=== PATIENT | female | born 1985 | race African-American/Black ===

== ENCOUNTER → 2019-02-21 | Outpatient (CLI) | payer OTHER ==
[2019-02-21 15:46] LABS: ANION GAP 8 (5-19); BLOOD UREA NITROGEN 12 mg/dL (7-20); CARBON DIOXIDE 29 mmol/L (22-30); CHLORIDE 102 mmol/L (98-107); GLUCOSE 81 mg/dL (75-110); POTASSIUM 3.3 mmol/L (3.6-5.0); SODIUM 138.9 mmol/L (137-145)
== END ==
LOC: OD 14:49
PROVIDERS: ATTEND Physician Assistant
DX: E87.6 Hypokalemia (principal)
CPT/HCPCS: 36415; 80048

== ENCOUNTER → 2019-03-10 | Outpatient (CLI) | payer OTHER | LOC: OD 14:19 | PROVIDERS: ATTEND Physician Assistant | DX: D50.9 Iron deficiency anemia, unspecified (principal) | CPT/HCPCS: 36415; 82728 ==

== ENCOUNTER → 2019-03-13 | Outpatient (CLI) | payer MEDICAID, OTHER ==
--- NOTE | 2019-03-13 12:21 | RADIOLOGY REPORT (SQ) ---
EXAM DESCRIPTION: U/S ABDOMEN LIMITED W/O DOP COMPLETED DATE/TIME: 03/13/2019 9:58 am REASON FOR STUDY: RIGHT UPPER QUAD PAIN R10.11 RIGHT UPPER QUADRANT PAIN COMPARISON: None. TECHNIQUE: Dynamic and static grayscale images acquired of the abdomen and recorded on PACS. Additio nal selected color Doppler and spectral images recorded. LIMITATIONS: None. FINDINGS: PANCREAS: No masses. Visualized pancreatic duct normal caliber. LIVER: No masses. Echotexture normal. LIVER VASCULATURE: Normal directional flow of the main portal vein and hepatic veins. GALLBLADDER: No stones. Normal wall thickness. No pericholecystic fluid. ULTRASOUND-DETECTED MEREDITH'S SIGN: Negative. INTRAHEPATIC DUCTS AND COMMON DUCT: CBD and intrahepatic ducts normal caliber. No filling defects. INFERIOR VENA CAVA: Normal flow. AORTA: No aneurysm. RIGHT KIDNEY: Normal size. Normal echogenicity. No solid or suspicious masses. No hydronephrosis. No calcifications. PERITONEAL AND RIGHT PLEURAL SPACE: No ascites or effusions. OTHER: No other significant findings. IMPRESSION: NORMAL RIGHT UPPER QUADRANT ULTRASOUND. TECHNICAL DOCUMENTATION: JOB ID: [id number] [employer]- All Rights Reserved Reading location - IP/workstation name: [email or web address]
== END ==
LOC: RAD 09:12
PROVIDERS: ATTEND Physician Assistant
DX: R10.11 Right upper quadrant pain (principal)
CPT/HCPCS: 76705

== ENCOUNTER 2019-04-06 15:23 | Emergency (ER) | payer OTHER, MEDICAID ==
--- NOTE | 2019-04-06 16:28 | ER Document Report ---
HPI - HPI Patient complains to provider of: Lower extremity swelling Time Seen by Provider: 04/06/19 16:12 Onset: Other - 5 days Onset/Duration: Persistent Quality of pain: Achy Pain Level: 3 Context: Patient states she recently started working full-time. Patient states that since working she has had bilateral lower extremity swelling from the knee distally. Patient does states she has a history of osteoarthritis and degenerative joint disease and has been told in the past that she will need knee replacement surgery. Patient complains of bilateral knee joint pain. Patient also reports denies any recent travel, bedrest for surgical procedure. Patient denies any chest pain dyspnea or history of PE or DVT. Associated Symptoms: Leg swelling. denies: Chest pain, Nonproductive cough, Productive cough, Fever, Headache, Shortness of breath Exacerbated by: Standing Relieved by: Denies Similar symptoms previously: Yes Recently seen / treated by doctor: No - ROS ROS below otherwise negative: Yes Systems Reviewed and Negative: Yes All other systems reviewed and negative - CONSTITUTIONAL Constitutional: DENIES: Fever - NEURO Neurology: DENIES: Weakness - CARDIOVASCULAR Cardiovascular: DENIES: Chest pain - RESPIRATORY Respiratory: DENIES: Trouble Breathing, Coughing - GASTROINTESTINAL Gastrointestinal: DENIES: Nausea, Patient vomiting - REPRODUCTIVE Reproductive: DENIES: : - MUSCULOSKELETAL Musculoskeletal: REPORTS: Extremity pain, Swelling - DERM Skin Color: Normal Skin Problems: None Past Medical History - General Information source: Patient - Social History Smoking Status: Current Every Day Smoker Smoking Education Provided: Yes Frequency of alcohol use: None Drug Abuse: None Occupation: food vendor Lives with: Family Family History: Reviewed & Not Pertinent - Past Medical History Cardiac Medical History: Reports: Hx Hypertension Musculoskeletal Medical History: Reports Hx Arthritis Past Surgical History: Reports: Hx Bowel Surgery - Gastric sleeve - Immunizations Hx Diphtheria, Pertussis, Tetanus Vaccination: No Vertical Provider Document - CONSTITUTIONAL Agree With Documented VS: Yes Exam Limitations: No Limitations General Appearance: WD/WN, No Apparent Distress - INFECTION CONTROL TRAVEL OUTSIDE OF THE [place] IN LAST 30 DAYS: No - HEENT HEENT: Atraumatic, Normocephalic - NECK Neck: Normal Inspection - RESPIRATORY Respiratory: Breath Sounds Normal, No Respiratory Distress - CARDIOVASCULAR Cardiovascular: Regular Rate, Regular Rhythm Pulses: Normal: Dorsalis pedis - MUSCULOSKELETAL/EXTREMETIES Musculoskeletal/Extremeties: MAEW, FROM, Tender - Tenderness to bilateral knees, Edema - 2+ edema to bilateral lower extremities from knees distally, bilateral knee joint effusion, right worse than left, normal skin color and temperature overlying joints. - NEURO Level of Consciousness: Awake, Alert, Appropriate Motor/Sensory: No Motor Deficit - DERM Integumentary: Warm, Dry, No Rash Course - Re-evaluation Re-evalutation: 04/06/19 17:37 With bilateral lower extremity pain and swelling for the past 5 days since having an increase in activity. Patient reports that she has had a history of left ankle swelling off and on for the past 4 months and has had a history of bilateral knee swelling and was told previously that she may need a joint replacement. Patient without any recent trauma. No dyspnea, no chest pain, no concern for DVT at this time. No elevation in BNP, no concern for congestive heart failure at this time. Patient with incidental hypokalemia, and mildly elevated liver function test. Patient states that she has had low potassium in the past. Patient encouraged to follow-up with her primary doctor for recheck. Patient also encouraged to use compression stockings to help with her peripheral edema. - Vital Signs Vital signs: Temp Pulse Resp BP Pulse Ox 98.2 F 84 16 127/92 H 97 04/06/19 15:37 04/06/19 15:37 04/06/19 15:37 04/06/19 15:37 04/06/19 15:37 - Laboratory Result Diagrams: 04/06/19 16:40 Laboratory results interpreted by me: 04/06/19 17:37 Labs- Entire Visit 04/06/19 04/06/19 04/06/19 16:40 16:40 16:40 Sodium 139.3 Potassium 3.3 L Chloride 110 H Carbon Dioxide 23 Anion Gap 6 BUN 9 Creatinine 0.55 Est GFR ( Amer) > 60 Est GFR (Non-Af Amer) > 60 Glucose 64 L Calcium 9.0 Magnesium 2.1 Total Bilirubin 0.7 Direct Bilirubin 0.2 Neonat Total Bilirubin Not Reportable Neonat Direct Bilirubin Not Reportable Neonat Indirect Bili Not Reportable AST 156 H ALT 63 H Alkaline Phosphatase 82 NT-Pro-B Natriuret Pep 55 Total Protein 6.2 L Albumin 3.5 Discharge - Discharge Clinical Impression: Dependent edema, Hypokalemia, Elevated liver function tests Condition: Stable Disposition: HOME, SELF-CARE Instructions: Dependent Edema ([facility]), Hypokalemia ([facility]), Liver Function Abnormality ([facility]) Additional Instructions: Return immediately for any new or worsening symptoms Followup with your primary care provider, call tomorrow to make a followup appointment Your potassium level was decreased today and your liver function test was mildly elevated. Your primary doctor can recheck these lab tests for you Wear compression stockings when you are at work to help with peripheral edema. Forms: Smoking Cessation Education, Return to Work Referrals: CHENG LEWIS MD [Primary Care Provider] - Follow up as needed ADI HEBERT PA [PHYSICIAN RETAIL SALES TEAMMATE] - Follow up in 3-5 days
[2019-04-06 17:14] LABS: ALANINE AMINOTRANSFERASE 63 U/L (9-52); ALBUMIN 3.5 g/dL (3.5-5.0); ALKALINE PHOSPHATASE 82 U/L (38-126); ANION GAP 6 (5-19); ASPARTATE AMINO TRANSFERASE 156 U/L (14-36); BILIRUBIN,DIRECT 0.2 mg/dL (0.0-0.4); BILIRUBIN,TOTAL 0.7 mg/dL (0.2-1.3); BLOOD UREA NITROGEN 9 mg/dL (7-20); CARBON DIOXIDE 23 mmol/L (22-30); CHLORIDE 110 mmol/L (98-107); POTASSIUM 3.3 mmol/L (3.6-5.0); SODIUM 139.3 mmol/L (137-145); TOTAL PROTEIN 6.2 g/dL (6.3-8.2)
[2019-04-06 17:17] LABS: GLUCOSE 64 mg/dL (75-110)
[2019-04-06] MEDS ORDERED: POTASSIUM CHLORIDE 10 MEQ CAPSULE.ER PO ONE (17:18)
[2019-04-06 17:58] VITALS: BP 140/95
== END 2019-04-06 18:17 | disposition home or self-care (01) ==
LOC: ER 15:23
DX: R60.0 Localized edema (principal); E87.6 Hypokalemia; R79.89 Other specified abnormal findings of blood chemistry; F17.200 Nicotine dependence, unspecified, uncomplicated; I10 Essential (primary) hypertension
CPT/HCPCS: 36415; 80053; 83735; 83880; 99283

== ENCOUNTER 2019-06-21 20:42 | Emergency (ER) | payer OTHER, MEDICAID ==
[2019-06-21 20:48] VITALS: BP 121/79
[2019-06-21] MEDS ORDERED: ACETAMINOPHEN 325 MG TABLET PO ONE (21:16)
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
[2019-06-21 21:47] LABS: APPEARANCE,URINE SLIGHTLY-CLOUDY; BILIRUBIN,URINE NEGATIVE (NEGATIVE); COLOR,URINE YELLOW; GLUCOSE, URINE NEGATIVE (NEGATIVE); KETONES,URINE NEGATIVE (NEGATIVE); LEUKOCYTE ESTERASE,URINE LARGE (NEGATIVE); NITRITE,URINE NEGATIVE (NEGATIVE); PROTEIN,URINE NEGATIVE (NEGATIVE); URINE SPECIFIC GRAVITY 1.011; UROBILINOGEN,URINE NEGATIVE mg/dL (<2.0)
[2019-06-21 23:10] LABS: ABSOLUTE BASOPHILS # (AUTO) 0.1 10^3/uL (0.0-0.2); ABSOLUTE LYMPHOCYTES (AUTO) 2.4 10^3/uL (0.5-4.7); ABSOLUTE MONOCYTES (AUTO) 0.8 10^3/uL (0.1-1.4); ABSOLUTE NEUT (AUTO) 4.5 10^3/uL (1.7-8.2); BASOPHILS % (AUTO) 0.9 % (0-2); EOSINOPHILS % (AUTO) 0.6 % (0-6); HEMATOCRIT 25.9 % (36.0-47.0); HEMOGLOBIN 8.2 g/dL (12.0-15.5); LYMPHOCYTES % (AUTO) 30.5 % (13-45); MEAN CORPUSCULAR HEMOGLOBIN 26.7 pg (27.0-33.4); MEAN CORPUSCULAR HGB CONC 31.4 g/dL (32.0-36.0); MEAN CORPUSCULAR VOLUME 85 fl (80-97); MONOCYTES % (AUTO) 9.7 % (3-13); PLATELET COUNT 372 10^3/uL (150-450); RED BLOOD COUNT 3.05 10^6/uL (3.72-5.28); RED CELL DISTRIBUTION WIDTH 19.9 % (11.5-14.0); SEGMENTED NEUTROPHILS % (AUTO) 58.3 % (42-78); TOTAL CELLS COUNTED % (AUTO) 100 %; WHITE BLOOD COUNT 7.8 10^3/uL (4.0-10.5)
[2019-06-21 23:27] LABS: ALBUMIN 3.3 g/dL (3.5-5.0); ALKALINE PHOSPHATASE 105 U/L (38-126); ANION GAP 7 (5-19); ASPARTATE AMINO TRANSFERASE 67 U/L (14-36); BILIRUBIN,DIRECT 0.4 mg/dL (0.0-0.4); BILIRUBIN,TOTAL 0.7 mg/dL (0.2-1.3); BLOOD UREA NITROGEN 10 mg/dL (7-20); CALCIUM 8.9 mg/dL (8.4-10.2); CARBON DIOXIDE 25 mmol/L (22-30); CHLORIDE 107 mmol/L (98-107); POTASSIUM 3.7 mmol/L (3.6-5.0); TOTAL PROTEIN 6.2 g/dL (6.3-8.2)
[2019-06-21 23:33] LABS: GLUCOSE 66 mg/dL (75-110)
== END 2019-06-21 23:56 | disposition left against medical advice (07) ==
LOC: ER 20:42
DX: R60.9 Edema, unspecified (principal); Z53.20 Procedure and treatment not carried out because of patient's decision for unspecified reasons
CPT/HCPCS: 36415; 80053; 81001; 81025; 85025

== ENCOUNTER 2019-06-25 | Emergency (ER) | payer MEDICAID, OTHER ==
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
[2019-06-25 03:02] LABS: ABSOLUTE BASOPHILS # (AUTO) 0.1 10^3/uL (0.0-0.2); ABSOLUTE EOSINOPHILS # (AUTO) 0.1 10^3/uL (0.0-0.6); ABSOLUTE LYMPHOCYTES (AUTO) 2.3 10^3/uL (0.5-4.7); ABSOLUTE MONOCYTES (AUTO) 0.7 10^3/uL (0.1-1.4); ABSOLUTE NEUT (AUTO) 3.3 10^3/uL (1.7-8.2); BASOPHILS % (AUTO) 1.6 % (0-2); EOSINOPHILS % (AUTO) 1.4 % (0-6); HEMATOCRIT 27.2 % (36.0-47.0); HEMOGLOBIN 8.5 g/dL (12.0-15.5); LYMPHOCYTES % (AUTO) 34.8 % (13-45); MEAN CORPUSCULAR HEMOGLOBIN 26.5 pg (27.0-33.4); MEAN CORPUSCULAR HGB CONC 31.1 g/dL (32.0-36.0); MEAN CORPUSCULAR VOLUME 85 fl (80-97); MONOCYTES % (AUTO) 11.3 % (3-13); PLATELET COUNT 386 10^3/uL (150-450); RED BLOOD COUNT 3.19 10^6/uL (3.72-5.28); RED CELL DISTRIBUTION WIDTH 19.5 % (11.5-14.0); SEGMENTED NEUTROPHILS % (AUTO) 50.9 % (42-78); TOTAL CELLS COUNTED % (AUTO) 100 %; WHITE BLOOD COUNT 6.5 10^3/uL (4.0-10.5)
[2019-06-25 03:07] LABS: APPEARANCE,URINE CLEAR; BILIRUBIN,URINE NEGATIVE (NEGATIVE); COLOR,URINE STRAW; GLUCOSE, URINE NEGATIVE (NEGATIVE); KETONES,URINE NEGATIVE (NEGATIVE); LEUKOCYTE ESTERASE,URINE NEGATIVE (NEGATIVE); NITRITE,URINE NEGATIVE (NEGATIVE); PROTEIN,URINE NEGATIVE (NEGATIVE); URINE SPECIFIC GRAVITY 1.003; UROBILINOGEN,URINE NEGATIVE mg/dL (<2.0)
[2019-06-25 03:08] LABS: ALBUMIN 3.4 g/dL (3.5-5.0); ALKALINE PHOSPHATASE 89 U/L (38-126); ANION GAP 8 (5-19); ASPARTATE AMINO TRANSFERASE 76 U/L (14-36); BILIRUBIN,DIRECT 0.5 mg/dL (0.0-0.4); BILIRUBIN,TOTAL 0.8 mg/dL (0.2-1.3); BLOOD UREA NITROGEN 14 mg/dL (7-20); CALCIUM 8.7 mg/dL (8.4-10.2); CARBON DIOXIDE 23 mmol/L (22-30); CHLORIDE 107 mmol/L (98-107); GLUCOSE 78 mg/dL (75-110); TOTAL PROTEIN 6.3 g/dL (6.3-8.2)
[2019-06-25] MEDS ORDERED: FUROSEMIDE INJ/PF 40 MG/4 ML SDV IV ONE (03:52)
[2019-06-25] MEDS ORDERED: HYDROCODONE/ACETAMINOPHEN 5-325 MG (6 TAB/ER DISP) PO PRN (04:22)
[2019-06-25 05:10] VITALS: BP 120/60
== END 2019-06-25 05:08 | disposition home or self-care (01) ==
LOC: ER
DX: M79.89 Other specified soft tissue disorders (principal); M79.604 Pain in right leg; M79.605 Pain in left leg; Z79.899 Other long term (current) drug therapy; F17.200 Nicotine dependence, unspecified, uncomplicated; I10 Essential (primary) hypertension; E66.9 Obesity, unspecified
CPT/HCPCS: 99283; 96374; 36415; 84703; 85025; 80053; 81001; J1940

== ENCOUNTER 2019-08-08 14:12 | Emergency (ER) | payer MEDICAID, OTHER ==
[2019-08-08] MEDS ORDERED: ONDANSETRON 4 MG TAB.RAPDIS PO ONE (14:26)
--- NOTE | 2019-08-08 14:26 | ER Document Report ---
ED Medical Screen (RME) - General Chief Complaint: Nausea Stated Complaint: NAUSEA Time Seen by Provider: 08/08/19 14:23 Primary Care Provider: CHENG LEWIS MD [Primary Care Provider] - Follow up as needed Mode of Arrival: Ambulatory Information source: Patient Notes: 34-year-old female presents to ED for complaint of nausea and vomiting x2 days. No abdominal pain. She states she is dizzy. She states she does smoke a half a pack a day drinks weekly no drugs. Last menstrual cycle was August 07 till now. States a history of high blood pressure, anemia, degenerative joint disease.. I have greeted and performed a rapid initial assessment of this patient. A comprehensive ED assessment and evaluation of the patient, analysis of test results and completion of medical decision making process will be conducted by an additional ED providers. TRAVEL OUTSIDE OF THE [place] IN LAST 30 DAYS: No - Related Data Allergies/Adverse Reactions: No Known Allergies Allergy (Verified 04/06/19 15:25) Past Medical History - Social History Chew tobacco use (# tins/day): No Frequency of alcohol use: Social Drug Abuse: None - Past Medical History Cardiac Medical History: Reports: Hx Hypertension Renal/ Medical History: Denies: Hx Peritoneal Dialysis Musculoskeltal Medical History: Reports Hx Arthritis Past Surgical History: Reports: Hx Bowel Surgery - Gastric sleeve - Immunizations Hx Diphtheria, Pertussis, Tetanus Vaccination: Yes Doctor's Discharge - Discharge Referrals: CHENG LEWIS MD [Primary Care Provider] - Follow up as needed
[2019-08-08 15:17] LABS: HEMATOCRIT 32.2 % (36.0-47.0); HEMOGLOBIN 10.2 g/dL (12.0-15.5); MEAN CORPUSCULAR HEMOGLOBIN 23.6 pg (27.0-33.4); MEAN CORPUSCULAR HGB CONC 31.8 g/dL (32.0-36.0); MEAN CORPUSCULAR VOLUME 74 fl (80-97); PLATELET COUNT 221 10^3/uL (150-450); RED BLOOD COUNT 4.33 10^6/uL (3.72-5.28); WHITE BLOOD COUNT 3.5 10^3/uL (4.0-10.5)
[2019-08-08 15:38] LABS: ALBUMIN 3.2 g/dL (3.5-5.0); ALKALINE PHOSPHATASE 138 U/L (38-126); ANION GAP 7 (5-19); ASPARTATE AMINO TRANSFERASE 269 U/L (14-36); BILIRUBIN,DIRECT 1.2 mg/dL (0.0-0.4); BILIRUBIN,TOTAL 2.6 mg/dL (0.2-1.3); BLOOD UREA NITROGEN 11 mg/dL (7-20); CALCIUM 8.6 mg/dL (8.4-10.2); CARBON DIOXIDE 23 mmol/L (22-30); CHLORIDE 109 mmol/L (98-107); GLUCOSE 92 mg/dL (75-110); POTASSIUM 3.9 mmol/L (3.6-5.0); TOTAL PROTEIN 6.4 g/dL (6.3-8.2)
[2019-08-08 15:47] LABS: ABSOLUTE LYMPHOCYTES# (MANUAL) 1.3 10^3/uL (0.5-4.7); ABSOLUTE MONOCYTES # (MANUAL) 0.1 10^3/uL (0.1-1.4); BASOPHILS % (MANUAL) 2 % (0-2); EOSINOPHILS % (MANUAL) 0 % (0-6); LYMPHOCYTES % (MANUAL) 36 % (13-45); MONOCYTES % (MANUAL) 3 % (3-13); SEGMENTED NEUTROPHILS % (MAN) 58 % (42-78); TOTAL CELLS COUNTED 100
[2019-08-08 15:48] LABS: ANISOCYTOSIS 3+; HYPOCHROMASIA 2+; PLATELET COMMENT ADEQUATE; TARGET CELLS 3+; TEAR DROP CELLS 1+
[2019-08-08 16:53] LABS: APPEARANCE,URINE SLIGHTLY-CLOUDY; BILIRUBIN,URINE NEGATIVE (NEGATIVE); COLOR,URINE AMBER; GLUCOSE, URINE NEGATIVE (NEGATIVE); KETONES,URINE NEGATIVE (NEGATIVE); PROTEIN,URINE NEGATIVE (NEGATIVE); URINE SPECIFIC GRAVITY 1.028
[2019-08-08] MEDS ORDERED: NORMAL SALINE 1000 ML 1,000 ML IV ONE (17:12)
[2019-08-08] MEDS ORDERED: PROMETHAZINE HCL 25 MG TABLET PO ONE (17:14)
--- NOTE | 2019-08-08 17:16 | ER Document Report ---
ED GI/ - General Mode of Arrival: Ambulatory Information source: Patient TRAVEL OUTSIDE OF THE [place] IN LAST 30 DAYS: No - HPI Patient complains to provider of: Vomiting. No: Abdominal pain Onset: Other - 2 days Timing/Duration: Persistent Quality of pain: No pain Pain Level: Denies Vaginal bleeding (Compared to normal period): None Associated symptoms: Loss of appetite, Nausea, Vomiting. denies: Chest pain, Diarrhea, Fever, Urinary hesitancy, Urinary frequency, Urinary retention Exacerbated by: Denies Relieved by: Denies Similar symptoms previously: No Recently seen / treated by doctor: No <MAGDA FORTUNE - Last Filed: 08/08/19 20:20> <YOLIS BEARDEN - Last Filed: 08/09/19 07:40> - General Chief Complaint: nausea Stated Complaint: NAUSEA Time Seen by Provider: 08/08/19 14:23 Primary Care Provider: [facility] [Provider Group] - 08/11/19 Notes: Patient presents with a 2-day history of nausea and vomiting. Patient also reports decreased appetite and dizziness. Patient denies any abdominal pain. Patient denies any fever or diarrhea. (MAGDA FORTUNE) - Related Data Allergies/Adverse Reactions: No Known Allergies Allergy (Verified 08/08/19 14:26) Past Medical History - General Information source: Patient - Social History Smoking Status: Current Every Day Smoker Chew tobacco use (# tins/day): No Frequency of alcohol use: Social Drug Abuse: None Occupation: Foodservice Family History: Reviewed & Not Pertinent Patient has suicidal ideation: No Patient has homicidal ideation: No - Past Medical History Cardiac Medical History: Reports: Hx Hypertension Renal/ Medical History: Denies: Hx Peritoneal Dialysis Musculoskeletal Medical History: Reports Hx Arthritis Past Surgical History: Reports: Hx Bowel Surgery - Gastric sleeve - Immunizations Hx Diphtheria, Pertussis, Tetanus Vaccination: Yes <MAGDA FORTUNE - Last Filed: 08/08/19 20:20> Review of Systems - Review of Systems Constitutional: No symptoms reported. denies: Fever, Recent illness EENT: No symptoms reported Cardiovascular: No symptoms reported. denies: Chest pain Gastrointestinal: Nausea, Vomiting, Poor appetite. denies: Abdominal pain Genitourinary: No symptoms reported Female Genitourinary: No symptoms reported Musculoskeletal: No symptoms reported Skin: No symptoms reported Hematologic/Lymphatic: No symptoms reported Neurological/Psychological: No symptoms reported <DEVIKAHILLNALINI - Last Filed: 08/08/19 20:20> Physical Exam - General General appearance: Appears well, Alert In distress: None - HEENT Head: Normocephalic, Atraumatic Eyes: Normal Conjunctiva: Normal Nasal: Normal Mouth/Lips: Normal Mucous membranes: Normal Neck: Normal, Supple. No: Lymphadenopathy - Respiratory Respiratory status: No respiratory distress Chest status: Nontender Breath sounds: Normal. No: Rales, Rhonchi, Stridor, Wheezing Chest palpation: Normal - Cardiovascular Rhythm: Regular Heart sounds: S1 appreciated, S2 appreciated Murmur: No - Abdominal Inspection: Normal Distension: No distension Bowel sounds: Normal Tenderness: Nontender Organomegaly: No organomegaly - Back Back: Normal, Nontender. No: CVA tenderness - Extremities General upper extremity: Normal inspection, Normal strength General lower extremity: Normal inspection, Normal strength - Neurological Neuro grossly intact: Yes Cognition: Normal Jacques Coma Scale Eye Opening: Spontaneous [place] Coma Scale Verbal: Oriented Jacques Coma Scale Motor: Obeys Commands [place] Coma Scale Total: 15 - Psychological Associated symptoms: Normal affect, Normal mood - Skin Skin Temperature: Warm Skin Moisture: Dry Skin Color: Normal <MAGDA FORTUNE - Last Filed: 08/08/19 20:20> - Vital signs Vitals: Temp Pulse Resp BP Pulse Ox 98.2 F 68 17 134/94 H 96 08/08/19 14:21 08/08/19 14:21 08/08/19 14:21 08/08/19 14:21 08/08/19 14:21 Course - Laboratory Result Diagrams: 08/08/19 14:42 08/08/19 14:42 <MAGDA FORTUNE - Last Filed: 08/08/19 20:20> - Laboratory Result Diagrams: 08/08/19 14:42 08/08/19 14:42 <YOLIS BEARDEN - Last Filed: 08/09/19 07:40> - Re-evaluation Re-evalutation: 08/08/19 17:[address] Vaca regarding patient presentation, discussed laboratory results, recommends adding on ultrasound at this time. 08/08/19 20:20 Report and handoff given to MARIELA Juares (MAGDA FORTUNE) Unremarkable. Chemistry showing mildly elevated bilirubin and AST area lipase unremarkable. Ultrasound showing possible gallbladder wall thickening, possible adenomyosis versus gas in the gallbladder, possible gallstones, borderline duct. Surprisingly patient has no abdominal tenderness, on reevaluation she has no tenderness at all. No current complaints. Still with her abnormal exam I discussed with Dr. Vaca and he does recommend a CAT scan because of her recent symptoms. CAT scan shows no abnormality other than probable adenomyosis and gallstones. No noted ductal dilatation or pericholecystic fluid. I reevaluated patient and discussed with her. She states she would prefer to be referred to surgical clinic and have her gallbladder removed, she declines my offer to speak with surgery now. She was provided with p.o. challenge and tolerated this without difficulty. Patient was given strict return precautions and she states she return if she worsens in any way. (YOLIS BEARDEN) - Vital Signs Vital signs: Temp Pulse Resp BP Pulse Ox 98.7 F 67 16 113/73 97 08/08/19 20:35 08/08/19 20:35 08/08/19 20:35 08/08/19 20:35 08/08/19 20:35 - Laboratory Laboratory results interpreted by me: 08/08/19 08/08/19 08/08/19 14:42 14:42 14:42 WBC 3.5 L Hgb 10.2 L Hct 32.2 L MCV 74 L MCH 23.6 L MCHC 31.8 L RDW 25.0 H Chloride 109 H Total Bilirubin 2.6 H Direct Bilirubin 1.2 H AST 269 H Alkaline Phosphatase 138 H Albumin 3.2 L Urine Blood MODERATE H Urine Urobilinogen 4.0 H Discharge <MAGDA FORTUNE - Last Filed: 08/08/19 20:20> <YOLIS BEARDEN - Last Filed: 08/09/19 07:40> - Discharge Clinical Impression: Upper abdominal pain, Nausea Cholelithiasis Qualifiers: Cholelithiasis location: gallbladder Cholecystitis presence: without cholecystitis Biliary obstruction: without biliary obstruction Qualified Code(s): K80.20 - Calculus of gallbladder without cholecystitis without obstruction Condition: Stable Disposition: HOME, SELF-CARE Additional Instructions: You do have gallstones in the gallbladder and probably adenomyosis of the gallbladder. I highly recommend that you follow-up with the surgical clinic referral listed, call for your appointment. Avoid any greasy or fatty foods. Take the pain and nausea medication if needed, ibuprofen can help but should be used with caution in the setting of a gastric sleeve. Return if you worsen including developing severe pain, vomiting, fever, or any other concerning or worsening symptoms. Prescriptions: Hydrocodone/Acetaminophen [[place] 5-325 mg Tablet] 1 - 2 tab PO ASDIR #12 tablet Ondansetron [Zofran Odt 4 mg Tablet] 1 - 2 tab PO Q4H PRN #15 tab.rapdis PRN Reason: For Nausea/Vomiting Forms: Return to Work Referrals: [facility] [Provider Group] - 08/11/19
[2019-08-08 20:37] VITALS: BP 113/73
--- NOTE | 2019-08-08 20:48 | RADIOLOGY REPORT (SQ) ---
EXAM DESCRIPTION: US ABDOMEN LIMITED COMPLETED DATE/TME: 08/08/2019 17:13 CLINICAL HISTORY: 34 years, Female, n/v, elevated bilirubin COMPARISON: Right upper quadrant ultrasound 03/13/2019 TECHNIQUE: LIMITATIONS: None. FINDINGS: The common bile duct is top normal to mildly dilated, measuring 7 mm. The distal common bile duct was obscured by bowel gas. There is mild gallbladder wall thickening. There are multiple small echogenic foci within the gallbladder wall. This is a new finding, as compared with the prior study. The industrial technologist reported a negative sonographic Alexander sign. The liver is slightly hyperechogenic, compatible with fatty infiltration. The pancreas and right kidney are unremarkable. IMPRESSION: Mild gallbladder wall thickening. Multiple small echogenic foci in the gallbladder wall. Diagnostic possibilities include air/gas in the gallbladder wall and adenomyomatosis involving the gallbladder wall. A CT scan of the abdomen would be helpful to make this distinction, if clinically warranted. Other findings as described. copyright 2010 [employer]- All Rights Reserved
--- NOTE | 2019-08-08 23:18 | RADIOLOGY REPORT (SQ) ---
EXAM DESCRIPTION: CT ABDOMEN PELVIS WITH IV CONTRAST COMPLETED DATE/TME: 08/08/2019 00:00 CLINICAL HISTORY: 34 years, Female, EVAL ABNORMAL ULTRASOUND; nausea/vomiting; elevated bilirubin COMPARISON: Abdominal ultrasound performed earlier the same day TECHNIQUE: Contrast enhanced CT of the abdomen/pelvis was performed. Images were obtained after the administration of 100 mL of Omnipaque 350 intravenous contrast. Coronal and sagittal reformations were created. Images stored on PACS. All CT scanners at this facility use dose modulation, iterative reconstruction, and/or weight based dosing when appropriate to reduce radiation dose to as low as reasonably achievable (ALARA). [facility]: Dose Right [facility]: CareDose [facility]: Dose Right [facility]: Teradose 4D [facility]: [employer] LIMITATIONS: None. FINDINGS: Limited evaluation of the lower chest reveals clear lung bases. The liver is diffusely low in attenuation relative to the spleen. An area of more geographic hypodensity is noted about the left hepatic lobe adjacent to the falciform ligament, a finding which can be associated with either third inflow artifact or more focal fatty infiltration. No focal liver lesions are appreciated. Spleen, pancreas, and both adrenal glands appear normal. Gallbladder is distended, demonstrating dependent hyperdensity, either indicating sludge or stones. No gallbladder wall gas or wall calcification is clearly identified. Likewise, there is no significant pericholecystic fluid or inflammatory stranding. Both kidneys enhance symmetrically. No hydronephrosis or hydroureter. Urinary bladder is collapsed, thus its evaluation is limited. Uterus and both ovaries show no suspicious finding. Small and large bowel are normal in caliber. No evidence of bowel obstruction. Appendix is normal. A partially peripherally calcified intermediate density lesion is noted about the left upper quadrant adjacent to the greater curvature of the stomach measuring 1.9 x 1.5 cm in size on image 21 of series 3. There are postsurgical changes of gastric sleeve procedure. Tiny hiatal hernia is noted. Diffuse anasarca is noted. No suspicious lymphadenopathy or drainable fluid collections. Bone windows show no destructive osseous lesions. There is a benign bone island within the right superior pubic ramus. IMPRESSION: No acute abnormality within the abdomen or pelvis. Cholelithiasis. The previously detailed echogenic foci about the gallbladder wall seen on the previous ultrasound do not correspond to gallbladder wall gas. As such, these foci most likely indicated adenomyomatosis. Hepatic steatosis. Postsurgical changes of gastric sleeve procedure with small hiatal hernia. Small intermediate density lesion with suspected peripheral calcification located about the left upper quadrant adjacent to the greater curvature of the stomach is of uncertain etiology. Recommend follow-up CT abdomen/pelvis in 6 months to document continued stability as this technically could represent a gastrointestinal stromal tumor. Alternatively, correlation with remote prior imaging from other institutions would be of benefit to document long-term stability/confirm benignity. TECHNICAL DOCUMENTATION: Quality ID # [id number]: Final reports with documentation of one or more dose reduction techniques (e.g., Automated exposure control, adjustment of the mA and/or kV according to patient size, use of iterative reconstruction technique) copyright 2011 [employer]- All Rights Reserved
[2019-08-08] MEDS ORDERED: ONDANSETRON ODT 4 MG TAB (6 TAB/ER DISP) PO PRN (23:38)
[2019-08-08] MEDS ORDERED: HYDROCODONE/ACETAMINOPHEN 5-325 MG (6 TAB/ER DISP) PO PRN (23:38)
== END 2019-08-09 00:05 | disposition home or self-care (01) ==
LOC: ER 14:12
DX: K80.20 Calculus of gallbladder without cholecystitis without obstruction (principal); R10.10 Upper abdominal pain, unspecified; R11.2 Nausea with vomiting, unspecified; R63.0 Anorexia; R42 Dizziness and giddiness; F17.200 Nicotine dependence, unspecified, uncomplicated; I10 Essential (primary) hypertension
CPT/HCPCS: 36415; 83690; 83735; 84703; 85025; 80053; 81001; 76705; 74177; S0119; J3490; J7030; 96360; 99284

== ENCOUNTER → 2019-08-18 | Outpatient (CLI) | payer MEDICAID ==
--- NOTE | 2019-08-18 19:05 | RADIOLOGY REPORT (SQ) ---
EXAM DESCRIPTION: VENOUS BILATERAL LOWER COMPLETED DATE/TIME: 08/18/2019 6:47 pm REASON FOR STUDY: BLE EDEMA R60.0 LOCALIZED EDEMA COMPARISON: None. TECHNIQUE: Dynamic and static wallace scale and color images acquired of both lower extremity venous sy stems. Selected spectral images acquired with additional compression and augmentation maneuvers. Imag es stored on PACS. LIMITATIONS: None. FINDINGS: RIGHT LEG COMMON FEMORAL AND FEMORAL: Normal phasicity, compression and augmentation. No visualized echogenic m aterial on wallace scale. No defects on color images. POPLITEAL: Normal compression and augmentation. No visualized echogenic material on wallace scale. No de fects on color images. CALF VESSELS: Normal compression and augmentation. No visualized echogenic material on wallace scale. No defects on color image. GSV AND SSV: Normal compression. No visualized echogenic material on wallace scale. No defects on color images. ANY DEEP VENOUS INSUFFICIENCY: Not evaluated. ANY EVIDENCE OF POPLITEAL CYST: No. OTHER: No other significant finding. LEFT LEG COMMON FEMORAL AND FEMORAL: Normal phasicity, compression and augmentation. No visualized echogenic m aterial on wallace scale. No defects on color images. POPLITEAL: Normal compression and augmentation. No visualized echogenic material on wallace scale. No de fects on color images. CALF VESSELS: Normal compression and augmentation. No visualized echogenic material on wallace scale. No defects on color images. GSV AND SSV: Normal compression. No visualized echogenic material on wallace scale. No defects on color images. ANY DEEP VENOUS INSUFFICIENCY: Not evaluated. ANY EVIDENCE POPLITEAL CYST: No. OTHER: No other significant finding. IMPRESSION: NO EVIDENCE DVT OR SVT IN EITHER LEG. TECHNICAL DOCUMENTATION: JOB ID: [id number] [place]-72 2010 [employer]- All Rights Reserved Reading location - IP/workstation name: [employer]
== END ==
LOC: SP 17:05
PROVIDERS: ATTEND Family Medicine
DX: R60.0 Localized edema (principal)
CPT/HCPCS: 93970

== ENCOUNTER 2019-08-19 10:43 | Day surgery (SDC) | payer MEDICAID ==
[~2019-08-19 10:43] MED LIST: CEFAZOLIN SODIUM 1 GM in DEXTROSE 5%-WATER 50 ML IV PRN; METRONIDAZOLE 500 MG/NS RTU 500 MG/100 ML RTUPB IV ONE; METRONIDAZOLE 500 MG/NS RTU 500 MG/100 ML RTUPB IV PRN
[2019-08-19] MEDS ORDERED: PROPOFOL INJ 200 MG/20 ML VIAL IV ONE (12:45)
[2019-08-19] MEDS ORDERED: MIDAZOLAM 2 MG/2 ML INJ ONE (12:45)
[2019-08-19] MEDS ORDERED: FENTANYL CITRATE INJ/PF 100 MCG/2 ML AMPUL ONE ×2 (12:45→17:01)
[2019-08-19] MEDS ORDERED: NEOSTIGMINE METHYLSULFATE 10 MG/10 ML VIAL ONE (12:55)
[2019-08-19] MEDS ORDERED: ROCURONIUM BROMIDE INJ 50 MG/5 ML VIAL IV ONE (12:55)
[2019-08-19] MEDS ORDERED: KETOROLAC TROMETHAMINE 60 MG/2 ML SDV ONE (12:55)
[2019-08-19] MEDS ORDERED: ONDANSETRON HCL INJ/PF 4 MG/2 ML SDV ONE (12:55)
[2019-08-19] MEDS ORDERED: SUCCINYLCHOLINE CHLORIDE INJ 200 MG/10 ML VIAL ONE (12:55)
[2019-08-19] MEDS ORDERED: GLYCOPYRROLATE 1 MG/5 ML VIAL ONE (12:55)
[2019-08-19] MEDS ORDERED: DEXAMETHASONE SOD PHOSPHATE INJ 4 MG/1 ML VIAL ONE (12:55)
[2019-08-19] MEDS ORDERED: OXYCODONE-ACETAMINOPHEN 5-325 MG TABLET PO PRN ×3 (16:02→16:48)
[2019-08-19] MEDS: BUPIVACAINE INJ/PF LIPOSOME/PF 266 MG/20 ML SDV ONE ×2 (16:02→16:29)
[2019-08-19] MEDS ORDERED: FENTANYL CITRATE INJ/PF 100 MCG/2 ML AMPUL IV PRN ×2 (16:02)
[2019-08-19] MEDS ORDERED: PROMETHAZINE HCL INJ 25 MG/1 ML VIAL IV PRN ×2 (16:02)
[2019-08-19] MEDS ORDERED: ONDANSETRON HCL INJ/PF 4 MG/2 ML SDV IV PRN (16:02)
[2019-08-19] MEDS ORDERED: MEPERIDINE HCL/PF INJ 25 MG/1 ML DISP.SYRIN IV PRN (16:02)
[2019-08-19] MEDS ORDERED: MORPHINE SULFATE 10 MG/ML INJ IV PRN (16:02)
[2019-08-19] MEDS ORDERED: DIPHENHYDRAMINE HCL 50 MG/ML VIAL IV PRN (16:02)
--- NOTE | 2019-08-19 16:46 | Operative Report ---
Nonrecallable Operative Report DATE OF SURGERY: 08/19/19 PREOPERATIVE DIAGNOSIS: Abdominal pain history of duodenal switch, biliary dyskinesia POSTOPERATIVE DIAGNOSIS: Abdominal pain, history of duodenal switch, biliary dyskinesia OPERATION: Esophagogastro duodenoscopy, laparoscopic cholecystectomy SURGEON: ABDI STACK ANESTHESIA: GA TISSUE REMOVED OR ALTERED: None COMPLICATIONS: None ESTIMATED BLOOD LOSS: 25 cc INTRAOPERATIVE FINDINGS: See dictation PROCEDURE: Patient was brought to the operating room awake alert in stable condition placed in the operative table supine position induced under general anesthesia and intubated. After appropriate timeout and site verification the procedure commenced. The Olympus gastroscope was passed into the mouth traversed past the upper pharyngeal sphincters into the proximal esophagus and we traversed the esophagus down to the GE junction upon reaching the GE junction we noted the previous gastric sleeve and noted the longitudinal suture line of the gastric sleeve. I reached the pylorus and identified the pylorus to be normal as we passed through the pylorus we identified the efferent and afferent limb of the jejunum there was no evidence of anastomotic ulcers nor otherwise there are any duodenal bulb ulcer. With some bile refluxing back from the afferent limb. We slowly withdrew the scope examined the gastric body and there is no evidence of any ulcerations we retroflexed the scope identify the GE junction there was no significant hiatal hernia. The scope was then slowly removed examining the esophagus on the way out and there was no evidence of any esophagitis or mucosal abnormalities. We then prepped and draped the abdomen for laparoscopic cholecystectomy. A varies needle was placed into the umbilicus and the abdomen was insufflated with 6 L of CO2 gas an infraumbilical 10 mm incision was made with a 15 blade and a 10 mm port placed in the abdominal cavity intra-abdominal visualization revealed no evidence of Veress needle or trocar injury. There were few adhesions of omentum to the anterior abdominal wall which were taken down with Bovie cautery once these were taken out we identified the right upper quadrant in the gallbladder. 2 lateral ports were placed under direct vision as well as an epigastric port 5 mm. We placed the gallbladder on traction identified the gallbladder neck placed it on traction identified the hepatoduodenal ligament the cystic duct and cystic artery were both dissected out of the hepatoduodenal ligament and the critical view was identified. 2 endoclips were placed on the stay side one the specimen side of both the cystic duct and cystic artery that they were divided the gallbladder was then dissected out of the liver bed with Bovie cautery placed in an Endobag and removed through the umbilical port site. Right upper quadrant was irrigated with normal saline suctioned dry hemostasis the liver bed was obtained with Bovie cautery. The pneumoperitoneum was reduced and the ports were removed the umbilical defect was closed with 0 Vicryl in the fashion and all 4 skin incisions were closed with intracuticular 4-0 Biosyn Steri-Strips completed the procedure the wounds were anesthetized with extrapril. The patient was awakened in the operating extubated transferred recovery in stable condition
--- NOTE | 2019-08-19 16:48 | Discharge Summary ---
Discharge Summary (SDC) - Discharge Final Diagnosis: abominal pain, history of duodenal switch, biliary dyskinesia. Date of Surgery: 08/19/19 Discharge Date: 08/19/19 Condition: Good Referrals: CHENG LEWIS MD [Primary Care Provider] - Discharge Diet: As Tolerated Discharge Activity: Activity As Tolerated, No Lifting Over 10 Pounds Report the Following to Your Physician Immediately: Vomiting, Fever over 101 Degrees, Unusual Bleeding - appoint with me for f/u in 2-3 wks.
[2019-08-19] MEDS ORDERED: ACETAMINOPHEN 1,000 MG/100 ML RTUPB IV ONE (17:02)
[2019-08-19] MEDS: FENTANYL CITRATE INJ/PF 100 MCG/2 ML AMPUL IV PRN ×2 (17:03→17:10)
[2019-08-19] MEDS ORDERED: OXYCODONE-ACETAMINOPHEN 5-325 MG TABLET ONE (18:14)
[2019-08-19 19:45] VITALS: BP 119/81
== END 2019-08-19 19:25 | disposition home or self-care (01) ==
LOC: OROUT 10:43
PROVIDERS: ATTEND Surgery
DX: K80.10 Calculus of gallbladder with chronic cholecystitis without obstruction (principal); K21.9 Gastro-esophageal reflux disease without esophagitis; I10 Essential (primary) hypertension; F17.210 Nicotine dependence, cigarettes, uncomplicated; Z79.899 Other long term (current) drug therapy; R10.12 Left upper quadrant pain
CPT/HCPCS: 43239; 36415; 84132; 81025; 88304 ×2; 47562; J2250; J0690; J3490 ×3; J1100; J1885; J3010; J2710; J0330; J2405; J7060; J2704; J0131; C9290; 790

== ENCOUNTER 2019-09-30 19:21 | Emergency (ER) | payer MEDICAID ==
[2019-09-30] MEDS ORDERED: THIAMINE HCL 100 MG, FOLIC ACID 1 MG in NORMAL SALINE 250 ML IV ONE (19:52)
[2019-09-30] MEDS ORDERED: ONDANSETRON HCL INJ/PF 4 MG/2 ML SDV IV ONE (19:52)
[2019-09-30] MEDS ORDERED: NORMAL SALINE 1000 ML 1,000 ML IV ONE (19:52)
--- NOTE | 2019-09-30 19:52 | ER Document Report ---
ED Medical Screen (RME) - General Chief Complaint: Abdominal Pain Stated Complaint: ABDOMINAL PAIN Time Seen by Provider: 09/30/19 19:43 Primary Care Provider: CHENG LEWIS MD [Primary Care Provider] - Follow up as needed TRAVEL OUTSIDE OF THE [place] IN LAST 30 DAYS: No - HPI Notes: 09/30/19 19:50 Patient is a 34-year-old female with a history of alcohol abuse who presents com plaining of 5 days of having oranges red color within her stool, nausea, left upper abdominal burning. Patient states that she stopped drinking 3 days ago. She had been drinking a bottle of wine per night for the last couple weeks. No fever. Patient states that she was seen at [facility] emergency department this morning and had an unremarkable work-up at that time. I have treated and performed a rapid initial assessment of this patient. A comprehensive ED assessment and evaluation of the patient, analysis of test results and completion of medical decision making process will be conducted by additional ED providers. PHYSICAL EXAMINATION: GENERAL: Well-appearing, well-nourished and in no acute distress. A&Ox4. Answers questions appropriately. Abdomen: Limited exam in triage, grossly soft without significant focal tenderness noted. - Related Data Allergies/Adverse Reactions: No Known Allergies Allergy (Verified 08/08/19 14:26) Past Medical History - Past Medical History Cardiac Medical History: Reports: Hx Hypertension Denies: Hx Congestive Heart Failure, Hx Coronary Artery Disease, Hx Heart Attack Pulmonary Medical History: Denies: Hx Asthma, Hx Bronchitis, Hx COPD, Hx Pneumonia, Hx Tuberculosis Neurological Medical History: Denies: Hx Cerebrovascular Accident, Hx Seizures, Hx Parkinson's Disease Renal/ Medical History: Denies: Hx End Stage Renal Disease, Hx Kidney Stones, Hx Peritoneal Dialysis GI Medical History: Denies: Hx Cirrhosis, Hx Gastroesophageal Reflux Disease, Hx Ulcer Musculoskeltal Medical History: Denies Hx Arthritis, Denies Hx Multiple Sclerosis Psychiatric Medical History: Denies: Hx Bipolar Disorder, Hx Depression, Hx Schizophrenia Past Surgical History: Reports: Hx Bowel Surgery - Gastric sleeve - Immunizations Hx Diphtheria, Pertussis, Tetanus Vaccination: Yes Physical Exam - Vital signs Vitals: Temp Pulse Resp BP Pulse Ox 98.5 F 82 20 127/88 H 100 09/30/19 19:27 09/30/19 19:27 09/30/19 19:27 09/30/19 19:27 09/30/19 19:27 Course - Vital Signs Vital signs: Temp Pulse Resp BP Pulse Ox 98.5 F 82 20 127/88 H 100 09/30/19 19:27 09/30/19 19:27 09/30/19 19:27 09/30/19 19:27 09/30/19 19:27 Doctor's Discharge - Discharge Referrals: CHENG LEWIS MD [Primary Care Provider] - Follow up as needed
[2019-09-30 20:30] LABS: APPEARANCE,URINE SLIGHTLY-CLOUDY; BILIRUBIN,URINE SMALL (NEGATIVE); CALCIUM OXALATE CRYSTALS,URINE MODERATE /HPF; COLOR,URINE AMBER; GLUCOSE, URINE NEGATIVE (NEGATIVE); KETONES,URINE TRACE mg/dL (NEGATIVE); PROTEIN,URINE 30 mg/dL (NEGATIVE); URINE SPECIFIC GRAVITY 1.031
[2019-09-30 20:38] LABS: ABSOLUTE LYMPHOCYTES (AUTO) 1.7 10^3/uL (0.5-4.7); ABSOLUTE MONOCYTES (AUTO) 0.5 10^3/uL (0.1-1.4); ABSOLUTE NEUT (AUTO) 3.6 10^3/uL (1.7-8.2); BASOPHILS % (AUTO) 0.7 % (0-2); EOSINOPHILS % (AUTO) 0.3 % (0-6); HEMATOCRIT 34.2 % (36.0-47.0); HEMOGLOBIN 10.9 g/dL (12.0-15.5); LYMPHOCYTES % (AUTO) 29.1 % (13-45); MEAN CORPUSCULAR HEMOGLOBIN 24.5 pg (27.0-33.4); MONOCYTES % (AUTO) 8.6 % (3-13); PLATELET COUNT 163 10^3/uL (150-450); RED BLOOD COUNT 4.45 10^6/uL (3.72-5.28); RED CELL DISTRIBUTION WIDTH 33.8 % (11.5-14.0); SEGMENTED NEUTROPHILS % (AUTO) 61.3 % (42-78); TOTAL CELLS COUNTED % (AUTO) 100 %; WHITE BLOOD COUNT 5.9 10^3/uL (4.0-10.5)
[2019-09-30 20:47] LABS: MEAN CORPUSCULAR VOLUME 77 fl (80-97)
[2019-09-30 20:50] LABS: ALBUMIN 3.7 g/dL (3.5-5.0); ALKALINE PHOSPHATASE 148 U/L (38-126); ANION GAP 8 (5-19); ASPARTATE AMINO TRANSFERASE 125 U/L (14-36); BILIRUBIN,DIRECT 0.9 mg/dL (0.0-0.4); BLOOD UREA NITROGEN 8 mg/dL (7-20); CALCIUM 9.4 mg/dL (8.4-10.2); CARBON DIOXIDE 27 mmol/L (22-30); CHLORIDE 105 mmol/L (98-107); GLUCOSE 81 mg/dL (75-110); POTASSIUM 3.7 mmol/L (3.6-5.0); TOTAL PROTEIN 7.2 g/dL (6.3-8.2)
[2019-09-30 20:59] LABS: ANISOCYTOSIS 4+; TARGET CELLS 3+
[2019-09-30 21:00] LABS: PLATELET COMMENT ADEQUATE
--- NOTE | 2019-09-30 22:14 | ER Document Report ---
ED GI/ - General Chief Complaint: Abdominal Pain Stated Complaint: ABDOMINAL PAIN Time Seen by Provider: 09/30/19 19:43 Primary Care Provider: CHENG LEWIS MD [Primary Care Provider] - 10/02/19 Mode of Arrival: Ambulatory Information source: Patient Notes: 34-year-old female presented to ED for complaint nausea vomiting diarrhea with orange color to her stools orange urine and burning abdominal pain to the left upper quadrant. She states that she stopped drinking better about a little but only half a day. She states she stopped in August when she had her gallbladder removed and then on 22 September she started drinking a bottle and a half of wine again and drank a bottle and a half on the and and then has not had any alcohol since then. She states she came into the emergency room because she thought she was having blood in her stools. She is alert oriented respirations regular nonlabored speaking in full sentences. She is a heavy alcoholic smokes about a pack to half pack a day does not use any drugs lives with her parents and works in the kitchen at the hospital. TRAVEL OUTSIDE OF THE [place] IN LAST 30 DAYS: No - HPI Patient complains to provider of: Abdominal pain, Diarrhea, Vomiting Onset: Other - 5 days Timing/Duration: Intermittent Quality of pain: Burning Severity at maximum: Severe Severity in ED: Moderate Pain Level: 3 Location: [facility] Vaginal bleeding (Compared to normal period): None Associated symptoms: Diarrhea, Nausea, Vomiting, Other - [place]-colored stool and orange-colored urine Exacerbated by: Denies Relieved by: Denies Similar symptoms previously: Yes Recently seen / treated by doctor: Yes - Went to another hospital today and was discharged as stable - Related Data Allergies/Adverse Reactions: No Known Allergies Allergy (Verified 08/08/19 14:26) Home Medications: Calcium, Lasix Past Medical History - General Information source: Patient - Social History Smoking Status: Current Every Day Smoker Cigarette use (# per day): Yes - 1/2 to 1 pack/day Smoking Education Provided: Yes - 4 minutes Frequency of alcohol use: Heavy - 1-1-1/2 bottles of wine a day Drug Abuse: None Occupation: Kitchen Lives with: Family Family History: Reviewed & Not Pertinent Patient has suicidal ideation: No Patient has homicidal ideation: No - Past Medical History Cardiac Medical History: Reports: Hx Hypertension Pulmonary Medical History: Denies: Hx Asthma, Hx Bronchitis, Hx COPD, Hx Pneumonia, Hx Tuberculosis EENT Medical History: Reports: None Neurological Medical History: Reports: None Endocrine Medical History: Reports: None Renal/ Medical History: Reports: None Malignancy Medical History: Reports: None GI Medical History: Reports: Hx Endoscopy Musculoskeletal Medical History: Reports None Skin Medical History: Reports None Psychiatric Medical History: Reports: Hx Anxiety Traumatic Medical History: Reports: None Infectious Medical History: Reports: None Past Surgical History: Reports: Hx Bowel Surgery - Gastric sleeve duodenal switch, Hx Cholecystectomy - Immunizations Hx Diphtheria, Pertussis, Tetanus Vaccination: Yes Hx Pneumococcal Vaccination: 07/01/19 Review of Systems - Review of Systems Constitutional: No symptoms reported EENT: No symptoms reported Cardiovascular: No symptoms reported Respiratory: No symptoms reported Gastrointestinal: Abdominal pain, Diarrhea, Nausea, Vomiting Genitourinary: No symptoms reported Female Genitourinary: No symptoms reported Musculoskeletal: No symptoms reported Skin: No symptoms reported Hematologic/Lymphatic: No symptoms reported Neurological/Psychological: No symptoms reported -: Yes All other systems reviewed and negative Physical Exam - Vital signs Vitals: Temp Pulse Resp BP Pulse Ox 98.5 F 82 20 127/88 H 100 09/30/19 19:27 09/30/19 19:27 09/30/19 19:27 09/30/19 19:27 09/30/19 19:27 Interpretation: Normal - General General appearance: Appears well, Alert - HEENT Head: Normocephalic, Atraumatic Eyes: Normal Pupils: PERRL - Respiratory Respiratory status: No respiratory distress Chest status: Nontender Breath sounds: Normal Chest palpation: Normal - Cardiovascular Rhythm: Regular Heart sounds: Normal auscultation Murmur: No - Abdominal Inspection: Normal Distension: No distension Bowel sounds: Hyperactive - Left upper quadrant Tenderness: Tender Organomegaly: No organomegaly - Back Back: Normal, Nontender - Extremities General upper extremity: Normal inspection, Nontender, Normal color, Normal ROM, Normal temperature General lower extremity: Normal inspection, Nontender, Normal color, Normal ROM, Normal temperature, Normal weight bearing. No: Bebo's sign - Neurological Neuro grossly intact: Yes Cognition: Normal Orientation: AAOx4 Jacques Coma Scale Eye Opening: Spontaneous [place] Coma Scale Verbal: Oriented Jacques Coma Scale Motor: Obeys Commands [place] Coma Scale Total: 15 Speech: Normal Motor strength normal: LUE, RUE, LLE, RLE Sensory: Normal - Psychological Associated symptoms: Normal affect, Normal mood - Skin Skin Temperature: Warm Skin Moisture: Dry Skin Color: Normal Course - Re-evaluation Re-evalutation: 10/01/19 08:51 Discussed labs with patient written report of labs given to patient. Patient was treated with antinausea medicine and IV fluids before being discharged. Patient was given strict instructions about no alcohol with these elevated liver enzymes. She was instructed to please follow-up with primary doctor and have her labs rechecked. Patient verbalized understanding and agreement treatment plan. - Vital Signs Vital signs: Temp Pulse Resp BP Pulse Ox 97.9 F 79 20 118/72 98 10/01/19 02:04 10/01/19 02:04 10/01/19 02:04 10/01/19 02:04 10/01/19 02:04 - Laboratory Result Diagrams: 09/30/19 20:00 09/30/19 20:00 Laboratory results interpreted by me: 09/30/19 09/30/19 09/30/19 20:00 20:00 20:00 Hgb 10.9 L Hct 34.2 L MCV 77 L D MCH 24.5 L RDW 33.8 H Total Bilirubin 3.0 H Direct Bilirubin 0.9 H AST 125 H Alkaline Phosphatase 148 H Urine Protein 30 H Urine Ketones TRACE H Urine Bilirubin SMALL H Urine Urobilinogen 4.0 H Leukocyte Esterase Rfl TRACE H Urine Ascorbic Acid 20 H Discharge - Discharge Clinical Impression: Limited liver enzymes, Chronic alcohol abuse Abdominal pain Qualifiers: Abdominal location: upper abdomen, unspecified Qualified Code(s): R10.10 - Upper abdominal pain, unspecified Condition: Stable Disposition: HOME, SELF-CARE Additional Instructions: ABDOMINAL PAIN: There are many causes of abdominal pain. Pain can mean a serious problem requiring surgery (such as appendicitis). It can also be an innocent problem that goes away on its own (such as a viral infection). Often, time must pass to determine the cause of pain. The physician does not feel that hospitalization is necessary, at present. Things may change within the next 24 hours. Call the doctor or come back for re-examination if any problems occur, such as: (1) Pain that becomes more severe, steady, or becomes concentrated in one specific area. Also, pain that is more severe with movement or coughing. (2) Vomiting that persists or becomes more frequent. (3) Blood in the vomitus, urine, or bowel movements. Blood in the stool may have a tarry or black appearance. (4) Shaking chills or fever greater than 100 degrees F. (5) The abdomen becomes more distended or swollen. (6) Bowel movements cease. (7) Failure to improve as expected. Liver enzymes are elevated L they are not going to improve as long as you continue to drink wine or any type of alcohol. I have discussed this at length with you. The reason your urine is orange and your still has large tense is due to the liver enzymes. It is also causing your diarrhea. Please follow-up with your primary care doctor as we have discussed and please stop drinking. ANTINAUSEA MEDICATION: You have been given a medication to suppress nausea and vomiting. This type of medication can be given as a shot, pill, or suppository. It will usually last for many hours. Pills and shots usually last six to eight hours, suppositories last about 12 hours. For the typical illness, only one or two doses of the medication may be necessary. Mild lightheadedness may occur. This type of medicine can cause drowsiness. Do not drive or operate dangerous machinery while under its influence. Do not mix with alcohol. See your doctor at once if you have muscle spasms or tightness, or uncontrollable motions (particularly of the neck, mouth, or jaw). Persistent vomiting or severe lightheadedness should also be evaluated by the physician. FOLLOW-UP CARE: If you have been referred to a physician for follow-up care, call the physicians office for an appointment as you were instructed or within the next two days. If you experience worsening or a significant change in your symptoms, notify the physician immediately or return to the Emergency Department at any time for re-evaluation. Forms: Elevated Blood Pressure Referrals: CHENG LEWIS MD [Primary Care Provider] - 10/02/19
[2019-10-01] MEDS ORDERED: THIAMINE HCL INJ 200 MG/2 ML VIAL ONE (00:04)
[2019-10-01] MEDS ORDERED: FOLIC ACID INJ 5 MG/1 ML 10 ML VIAL ONE (00:05)
[2019-10-01] MEDS ORDERED: ONDANSETRON HCL INJ/PF 4 MG/2 ML SDV ONE (00:06)
[2019-10-01 02:05] VITALS: BP 118/72
== END 2019-10-01 02:24 | disposition home or self-care (01) ==
LOC: EEVIPCON 19:21 → ER 19:21
DX: R10.10 Upper abdominal pain, unspecified (principal); R94.5 Abnormal results of liver function studies; F10.20 Alcohol dependence, uncomplicated; R11.2 Nausea with vomiting, unspecified; R19.7 Diarrhea, unspecified; R19.5 Other fecal abnormalities; R10.12 Left upper quadrant pain; F17.210 Nicotine dependence, cigarettes, uncomplicated; I10 Essential (primary) hypertension
CPT/HCPCS: 99406; 99283; 96361; 96374; 36415; 80307; 83690; 85025; 81025; 80053; 81001; J3490; J3411; J2405; J7030; J7050

== ENCOUNTER 2019-10-13 08:37 | Day surgery (SDC) | payer MEDICAID ==
[~2019-10-13 08:37] MED LIST changes: -CEFAZOLIN SODIUM 1 GM in DEXTROSE 5%-WATER 50 ML IV PRN; -METRONIDAZOLE 500 MG/NS RTU 500 MG/100 ML RTUPB IV ONE; -METRONIDAZOLE 500 MG/NS RTU 500 MG/100 ML RTUPB IV PRN; +PROPOFOL INJ 200 MG/20 ML VIAL IV ONE
[2019-10-13] MEDS ORDERED: PROPOFOL INJ 200 MG/20 ML VIAL IV ONE (10:05)
[2019-10-13 10:52] VITALS: BP 124/88
--- NOTE | 2019-10-13 13:27 | Operative Report ---
Operative Report DATE OF SURGERY: 10/13/19 Operative Report: The risks, benefits and alternatives of the procedure including the risk of bleeding, perforation requiring surgery have been explained to the patient in detail and informed consent has been obtained. Patient is placed in the left lateral decubital position. Timeout was called. Propofol medication is administered. Rectal examination is done which did not reveal any masses, tears or fissures. An Olympus videoscope was introduced into the patient's rectum. Scope was then carefully advanced all the way to the cecum. The cecum was identified by the usual anatomical landmarks including the ileocecal valve as well as the appendiceal office. Photodocumentation is obtained. Scope was then sequentially pulled back via the various segments of the colon including the ascending colon, hepatic flexure, transverse colon, splenic flexure, descending colon and finally into the rectosigmoid portions of the colon. Retroflexion maneuvers performed. Intubation of the terminal ileum is done. PREOPERATIVE DIAGNOSIS: Iron deficiency anemia POSTOPERATIVE DIAGNOSIS: Mild terminal ileitis status post biopsy OPERATION: Colonoscopy with biopsy SURGEON: MING LÓPEZ ANESTHESIA: LMAC TISSUE REMOVED OR ALTERED: As noted above. COMPLICATIONS: None. ESTIMATED BLOOD LOSS: None. INTRAOPERATIVE FINDINGS: As noted above. PROCEDURE: Patient tolerated the procedure well. No immediate postprocedure complications are noted. Patient is discharged in good condition. Discharge date 10/13/2019. Discharge diet: Regular. Discharge activity: Regular. 2 to 3-week follow-up to discuss findings. Patient is instructed to call the office or proceed to the emergency room should there be any further problems or questions. Wait on the pathology.
== END 2019-10-13 10:51 | disposition home or self-care (01) ==
LOC: END 08:37
PROVIDERS: ATTEND Internal Medicine Gastroenterology
DX: D50.9 Iron deficiency anemia, unspecified (principal); K52.9 Noninfective gastroenteritis and colitis, unspecified; I10 Essential (primary) hypertension; F17.210 Nicotine dependence, cigarettes, uncomplicated
CPT/HCPCS: 45380; 88305 ×2; 00811; J2704; 811

== ENCOUNTER 2019-11-14 05:45 | Inpatient (IN) | payer MEDICAID ==
[2019-11-14] MEDS ORDERED: LORAZEPAM INJ 2 MG/1 ML VIAL IV ONE (06:00)
[2019-11-14] MEDS ORDERED: VECURONIUM BROMIDE INJ 10 MG VIAL IV ONE (06:00)
[2019-11-14] MEDS ORDERED: SUCCINYLCHOLINE CHLORIDE INJ 200 MG/10 ML VIAL IV ONE (06:01)
[2019-11-14] MEDS ORDERED: ETOMIDATE INJ/PF 20 MG/10 ML SDV IV ONE ×2 (06:01→09:41)
[2019-11-14] MEDS: PROPOFOL 1,000 MG/100 ML INFUS..BTL IV PRN ×3 (06:15→17:24)
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
--- NOTE | 2019-11-14 07:16 | RADIOLOGY REPORT (SQ) ---
EXAM: XR Chest, 1 View EXAM DATE/TIME: 11/14/2019 6:24 AM CLINICAL HISTORY: The patient is 34 years old and is Female; CHEST TUBE INSERTION TECHNIQUE: Frontal view of the chest. COMPARISON: Chest radiograph from 11/14/2019 at 6:01 AM FINDINGS: LUNGS: The lung apices are incompletely imaged. The lungs are clear. No consolidation. PLEURAL SPACE: No significant pleural effusion. There is no obvious pneumothorax. However, the lung apices are incompletely imaged. HEART: No significant enlargement of the cardiac silhouette. MEDIASTINUM: Unremarkable. BONES/JOINTS: The bones are unchanged. SOFT TISSUES: There is soft tissue air in the left lateral chest wall. TUBES, LINES AND DEVICES: Endotracheal tube terminates 4 cm above the steven. Enteric tube terminates in the proximal stomach. There has been interval placement of a left-sided chest tube which terminates medially at the level of the left upper lung. IMPRESSION: Interval placement of left-sided chest tube. No obvious pneumothorax.
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
[2019-11-14] MEDS ORDERED: ALBUTEROL SULFATE 0.083% NEB 2.5 MG/3 ML AMPUL NEB PRN (08:12)
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
[2019-11-14] MEDS: RINGERS SOLUTION,LACTATED 1,000 ML IV PRN ×2 (08:46→19:47)
[2019-11-14 08:47] LABS: ABSOLUTE MONOCYTES (AUTO) 0.5 10^3/uL (0.1-1.4); ABSOLUTE NEUT (AUTO) 3.8 10^3/uL (1.7-8.2); BASOPHILS % (AUTO) 0.5 % (0-2); EOSINOPHILS % (AUTO) 0.4 % (0-6); HEMATOCRIT 41.3 % (36.0-47.0); HEMOGLOBIN 13.2 g/dL (12.0-15.5); LYMPHOCYTES % (AUTO) 31.1 % (13-45); MEAN CORPUSCULAR HEMOGLOBIN 24.4 pg (27.0-33.4); MEAN CORPUSCULAR VOLUME 76 fl (80-97); MONOCYTES % (AUTO) 8.1 % (3-13); PLATELET COUNT 189 10^3/uL (150-450); RED BLOOD COUNT 5.41 10^6/uL (3.72-5.28); SEGMENTED NEUTROPHILS % (AUTO) 59.9 % (42-78); TOTAL CELLS COUNTED % (AUTO) 100 %; WHITE BLOOD COUNT 6.4 10^3/uL (4.0-10.5)
[2019-11-14] MEDS ORDERED: PROPOFOL INJ 200 MG/20 ML VIAL IV ONE ×3 (08:50→11:14)
[2019-11-14] MEDS: MORPHINE SULFATE 10 MG/ML INJ IV SCH ×4 (08:53→19:47)
[2019-11-14 08:54] LABS: ALBUMIN 3.9 g/dL (3.5-5.0); ALKALINE PHOSPHATASE 89 U/L (38-126); ANION GAP 13 (5-19); ASPARTATE AMINO TRANSFERASE 73 U/L (14-36); BILIRUBIN,DIRECT 0.4 mg/dL (0.0-0.4); BILIRUBIN,TOTAL 1.1 mg/dL (0.2-1.3); BLOOD UREA NITROGEN 12 mg/dL (7-20); CALCIUM 9.4 mg/dL (8.4-10.2); CARBON DIOXIDE 20 mmol/L (22-30); CHLORIDE 107 mmol/L (98-107); GLUCOSE 125 mg/dL (75-110); POTASSIUM 4.4 mmol/L (3.6-5.0); TOTAL PROTEIN 7.6 g/dL (6.3-8.2)
[2019-11-14 08:57] LABS: INTERNATIONAL RATION (INR) 1.09; PROTHROMBIN TIME 14.1 SEC (11.4-15.4)
[2019-11-14 09:14] LABS: ANISOCYTOSIS 2+; HYPOCHROMASIA 1+; TARGET CELLS 1+
[2019-11-14 09:15] LABS: PLATELET COMMENT ADEQUATE; SCHISTOCYTES SLIGHT
[2019-11-14 09:26] LABS: URINE AMPHETAMINES SCREEN NEGATIVE; URINE BARBITURATES SCREEN NEGATIVE; URINE BENZODIAZEPINES SCREEN NEGATIVE; URINE COCAINE SCREEN NEGATIVE; URINE MARIJUANA (THC) SCREEN NEGATIVE; URINE METHADONE SCREEN NEGATIVE; URINE PHENCYCLIDINE SCREEN NEGATIVE
[2019-11-14] MEDS ORDERED: SUCCINYLCHOLINE CHLORIDE INJ 200 MG/10 ML VIAL ONE (09:41)
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
[2019-11-14] MEDS: FAMOTIDINE INJ/PF 20 MG/2 ML SDV IV SCH ×2 (10:15→21:12)
[2019-11-14 10:36] LABS: ARTERIAL BLOOD BASE EXCESS -2.8 mmol/L; ARTERIAL BLOOD H2CO3 1.51 mmol/L (1.05-1.35); ARTERIAL BLOOD O2 SATURATION 99.3 % (94-98); ARTERIAL BLOOD PCO2 50.3 mmHg (35-45); ARTERIAL BLOOD PO2 208.4 mmHg (80-100); ARTERIAL BLOOD TOTAL CO2 25.5 mmol/L (21-25)
[2019-11-14 10:37] LABS: ARTERIAL BLOOD FIO2 50%
[2019-11-14] MEDS ORDERED: MORPHINE SULFATE 10 MG/ML INJ ONE (18:21)
[2019-11-15] MEDS: MORPHINE SULFATE 10 MG/ML INJ IV SCH ×4 (04:00→11:23)
[2019-11-15] MEDS: MORPHINE SULFATE 10 MG/ML INJ IV PRN ×2 (05:45→09:59)
--- NOTE | 2019-11-15 08:08 | RADIOLOGY REPORT (SQ) ---
EXAM DESCRIPTION: CHEST SINGLE VIEW COMPLETED DATE/TIME: 11/15/2019 6:36 am REASON FOR STUDY: pneumothorax COMPARISON: 11/14/2019 FINDINGS: Single-view chest AP portable upright. Extubated. Endotracheal and nasogastric tubes have been removed. Left chest tube remains in place. Low lung volumes. No developing opacities or pneumothorax. TECHNICAL DOCUMENTATION: JOB ID: [id number] Reading location - IP/workstation name: [email or web address]
[2019-11-15] MEDS: FAMOTIDINE INJ/PF 20 MG/2 ML SDV IV SCH ×2 (09:59→21:34)
--- NOTE | 2019-11-15 10:30 | Progress Note ---
Provider Note Provider Note: Surgery was following the patient for a left-sided chest tube. The patient no longer has a chest tube, as it was removed by the school crossing guard. Surgery will sign off at this time, as we have nothing further to add. Please reconsult if needed.
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
[2019-11-15] MEDS ORDERED: OXYCODONE-ACETAMINOPHEN 5-325 MG TABLET PO PRN (12:12)
[2019-11-15] MEDS ORDERED: OXYCODONE HCL IR 5 MG TABLET PO PRN (12:13)
[2019-11-15] MEDS ORDERED: HYDROXYZINE PAMOATE 25 MG CAPSULE PO PRN (14:45)
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
[2019-11-15] MEDS: HYDROMORPHONE HCL INJ/PF 2 MG/ML AMPULE IV PRN (17:44)
[2019-11-15] MEDS: ACETAMINOPHEN 325 MG TABLET PO PRN (21:44)
[2019-11-16] MEDS: HYDROMORPHONE HCL INJ/PF 2 MG/ML AMPULE IV PRN ×3 (00:01→23:57)
[2019-11-16] MEDS: ACETAMINOPHEN 325 MG TABLET PO PRN ×2 (02:20→16:27)
--- NOTE | 2019-11-16 08:23 | RADIOLOGY REPORT (SQ) ---
EXAM DESCRIPTION: CHEST SINGLE VIEW COMPLETED DATE/TIME: 11/16/2019 8:05 am REASON FOR STUDY: pneumothorax COMPARISON: None. EXAM PARAMETERS: NUMBER OF VIEWS: One view. TECHNIQUE: Single frontal radiographic view of the chest acquired. RADIATION DOSE: NA LIMITATIONS: None. FINDINGS: LUNGS AND PLEURA: Low lung volumes. Mild basilar atelectasis. No large pleural effusion. No pneumothorax. MEDIASTINUM AND HILAR STRUCTURES: No masses. Contour normal. HEART AND VASCULAR STRUCTURES: Heart normal in size. Normal vasculature. BONES: No acute findings. HARDWARE: None in the chest. OTHER: No other significant finding. IMPRESSION: LOW LUNG VOLUMES WITH MILD BASILAR ATELECTASIS. TECHNICAL DOCUMENTATION: JOB ID: [id number] 2010 [employer]- All Rights Reserved Reading location - IP/workstation name: [email or web address]
[2019-11-16] MEDS: FAMOTIDINE INJ/PF 20 MG/2 ML SDV IV SCH ×2 (09:52→21:41)
[2019-11-16] MEDS ORDERED: FUROSEMIDE 20 MG TABLET PO SCH (10:00)
[2019-11-16] MEDS ORDERED: FOLIC ACID 1 MG TABLET PO SCH (10:00)
[2019-11-16] MEDS ORDERED: SERTRALINE HCL 50 MG TABLET PO SCH (10:00)
[2019-11-16] MEDS: NICOTINE 21 MG/24 HR PATCH.TD24 TD SCH (12:16)
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
[2019-11-16] MEDS ORDERED: BENZTROPINE MESYLATE 1 MG TABLET PO SCH (17:00)
[2019-11-16] MEDS: BENZTROPINE MESYLATE 1 MG TABLET PO SCH (17:41)
[2019-11-16] MEDS: OLANZAPINE 5 MG TABLET PO SCH (17:41)
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
--- NOTE | 2019-11-17 08:39 | RADIOLOGY REPORT (SQ) ---
EXAM DESCRIPTION: CHEST SINGLE VIEW COMPLETED DATE/TIME: 11/17/2019 6:40 am REASON FOR STUDY: pneumothorax COMPARISON: AP view of the chest from 11/16/2022 EXAM PARAMETERS: NUMBER OF VIEWS: One view. TECHNIQUE: An AP view of the chest was obtained. RADIATION DOSE: NA. LIMITATIONS: None. FINDINGS: LUNGS AND PLEURA: Low inspiratory lung volumes. The left lateral costophrenic sulcus is b lunted. There are probable atelectatic opacities in the left inferior hemithorax. There is no pneum othorax or consolidation. MEDIASTINUM AND HILAR STRUCTURES: No mediastinal or hilar contour abnormality. HEART AND VASCULAR STRUCTURES: The cardiac silhouette and pulmonary vasculature are within normal gutierrez its. BONES: No acute findings. HARDWARE: None in the chest. OTHER: Subcutaneous emphysema in the lateral hemithorax. IMPRESSION: Low inspiratory lung volumes with bibasilar atelectasis and a trace left pleural effusio n. There is no pneumothorax. TECHNICAL DOCUMENTATION: JOB ID: [id number] 2011 [employer]- All Rights Reserved Reading location - IP/workstation name: [email or web address]
[2019-11-17] MEDS: OLANZAPINE 5 MG TABLET PO SCH ×2 (09:30→17:05)
[2019-11-17] MEDS: FAMOTIDINE INJ/PF 20 MG/2 ML SDV IV SCH (09:30)
[2019-11-17] MEDS: NICOTINE 21 MG/24 HR PATCH.TD24 TD SCH (09:30)
[2019-11-17] MEDS: ACETAMINOPHEN 325 MG TABLET PO PRN (09:31)
[2019-11-17 09:59] LABS: ABSOLUTE EOSINOPHILS # (AUTO) 0.1 10^3/uL (0.0-0.6); ABSOLUTE MONOCYTES (AUTO) 0.6 10^3/uL (0.1-1.4); ABSOLUTE NEUT (AUTO) 2.7 10^3/uL (1.7-8.2); BASOPHILS % (AUTO) 0.3 % (0-2); HEMATOCRIT 31.2 % (36.0-47.0); LYMPHOCYTES % (AUTO) 22.7 % (13-45); MEAN CORPUSCULAR HEMOGLOBIN 24.4 pg (27.0-33.4); MEAN CORPUSCULAR HGB CONC 32.1 g/dL (32.0-36.0); MEAN CORPUSCULAR VOLUME 76 fl (80-97); MONOCYTES % (AUTO) 12.8 % (3-13); PLATELET COUNT 207 10^3/uL (150-450); RED CELL DISTRIBUTION WIDTH 18.4 % (11.5-14.0); SEGMENTED NEUTROPHILS % (AUTO) 62.2 % (42-78); TOTAL CELLS COUNTED % (AUTO) 100 %; WHITE BLOOD COUNT 4.4 10^3/uL (4.0-10.5)
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
[2019-11-17 10:21] LABS: ANISOCYTOSIS 2+; HYPOCHROMASIA SLIGHT; OVALOCYTES SLIGHT; PLATELET COMMENT ADEQUATE; POIKILOCYTOSIS 1+; POLYCHROMASIA SLIGHT; TEAR DROP CELLS SLIGHT
[2019-11-17 10:26] LABS: ANION GAP 7 (5-19); BLOOD UREA NITROGEN 8 mg/dL (7-20); CALCIUM 8.8 mg/dL (8.4-10.2); CARBON DIOXIDE 28 mmol/L (22-30); CHLORIDE 107 mmol/L (98-107); GLUCOSE 101 mg/dL (75-110); POTASSIUM 3.8 mmol/L (3.6-5.0)
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
[2019-11-17] MEDS: BENZTROPINE MESYLATE 1 MG TABLET PO SCH (17:05)
[2019-11-17] MEDS: FAMOTIDINE 20 MG TABLET PO SCH (21:31)
[2019-11-17] MEDS: HYDROMORPHONE HCL INJ/PF 2 MG/ML AMPULE IV PRN (23:24)
[2019-11-18 06:13] LABS: ABSOLUTE EOSINOPHILS # (AUTO) 0.1 10^3/uL (0.0-0.6); ABSOLUTE LYMPHOCYTES (AUTO) 1.8 10^3/uL (0.5-4.7); ABSOLUTE MONOCYTES (AUTO) 0.6 10^3/uL (0.1-1.4); BASOPHILS % (AUTO) 0.8 % (0-2); EOSINOPHILS % (AUTO) 2.2 % (0-6); HEMATOCRIT 29.4 % (36.0-47.0); HEMOGLOBIN 9.5 g/dL (12.0-15.5); LYMPHOCYTES % (AUTO) 39.4 % (13-45); MEAN CORPUSCULAR HEMOGLOBIN 24.3 pg (27.0-33.4); MEAN CORPUSCULAR HGB CONC 32.2 g/dL (32.0-36.0); MEAN CORPUSCULAR VOLUME 76 fl (80-97); MONOCYTES % (AUTO) 12.9 % (3-13); PLATELET COUNT 254 10^3/uL (150-450); RED BLOOD COUNT 3.89 10^6/uL (3.72-5.28); SEGMENTED NEUTROPHILS % (AUTO) 44.7 % (42-78); TOTAL CELLS COUNTED % (AUTO) 100 %; WHITE BLOOD COUNT 4.5 10^3/uL (4.0-10.5)
[2019-11-18 06:37] LABS: ANION GAP 8 (5-19); BLOOD UREA NITROGEN 12 mg/dL (7-20); CALCIUM 8.2 mg/dL (8.4-10.2); CARBON DIOXIDE 25 mmol/L (22-30); CHLORIDE 108 mmol/L (98-107); GLUCOSE 78 mg/dL (75-110); POTASSIUM 3.9 mmol/L (3.6-5.0)
[2019-11-18 06:45] LABS: ANISOCYTOSIS 2+; HYPOCHROMASIA SLIGHT; OVALOCYTES SLIGHT; POIKILOCYTOSIS SLIGHT; POLYCHROMASIA SLIGHT; TARGET CELLS SLIGHT
[2019-11-18 06:46] LABS: PLATELET COMMENT ADEQUATE
[2019-11-18] MEDS: HYDROMORPHONE HCL INJ/PF 2 MG/ML AMPULE IV PRN ×2 (08:01→16:22)
[2019-11-18] MEDS: CYANOCOBALAMIN (VITAMIN B-12) 1,000 MCG TABLET PO SCH (09:36)
[2019-11-18] MEDS: FAMOTIDINE 20 MG TABLET PO SCH ×2 (09:36→21:46)
[2019-11-18] MEDS: CHOLECALCIFEROL (D3) 400 UNIT TABLET PO SCH (09:36)
[2019-11-18] MEDS: VITAMIN B COMPLEX TABLET PO SCH (09:36)
[2019-11-18] MEDS: NICOTINE 21 MG/24 HR PATCH.TD24 TD SCH (09:36)
[2019-11-18] MEDS: OLANZAPINE 5 MG TABLET PO SCH ×2 (09:37→17:38)
[2019-11-18] MEDS: THIAMINE HCL 100 MG TABLET PO SCH (09:37)
[2019-11-18] MEDS ORDERED: (PENDING PHARMACY ID) (Calcium Carbonate/Vitamin D3 [Calcium 600-Vit D3 200 Tablet] 1 EACH PO SCH (10:00)
[2019-11-18] MEDS ORDERED: THIAMINE HCL 500 MG PO SCH (10:00)
[2019-11-18] MEDS ORDERED: (PENDING PHARMACY ID) (Cyanocobalamin (Vitamin B-12) [Vitamin B-12] 500 MCG) SL SCH (10:00)
[2019-11-18] MEDS ORDERED: CALCIUM CARBONATE 250 MG/VITAMIN D3 125 UNIT TABLET PO SCH (10:00)
[2019-11-18] MEDS ORDERED: IPRATROPIUM/ALBUTEROL 0.5-2.5 MG/3 ML AMPUL NEB PRN (10:01)
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
[2019-11-18] MEDS ORDERED: GUAIFENESIN 600 MG TABLET.SA PO ONE (11:00)
[2019-11-18] MEDS: GUAIFENESIN 600 MG TABLET.SA PO SCH ×2 (11:13→21:46)
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
[2019-11-18] MEDS: BENZTROPINE MESYLATE 1 MG TABLET PO SCH (17:38)
[2019-11-18] MEDS ORDERED: GUAIFENESIN 600 MG TABLET.SA PO SCH (22:00)
[2019-11-19] MEDS: HYDROMORPHONE HCL INJ/PF 2 MG/ML AMPULE IV PRN ×2 (04:49→10:50)
[2019-11-19 06:39] LABS: ANION GAP 6 (5-19); BLOOD UREA NITROGEN 10 mg/dL (7-20); CALCIUM 8.6 mg/dL (8.4-10.2); CARBON DIOXIDE 25 mmol/L (22-30); CHLORIDE 110 mmol/L (98-107); GLUCOSE 92 mg/dL (75-110)
[2019-11-19] MEDS: VITAMIN B COMPLEX TABLET PO SCH (09:02)
[2019-11-19] MEDS: GUAIFENESIN 600 MG TABLET.SA PO SCH ×2 (09:03→21:09)
[2019-11-19] MEDS: THIAMINE HCL 100 MG TABLET PO SCH (09:03)
[2019-11-19] MEDS: FAMOTIDINE 20 MG TABLET PO SCH ×2 (09:03→21:09)
[2019-11-19] MEDS: NICOTINE 21 MG/24 HR PATCH.TD24 TD SCH (09:03)
[2019-11-19] MEDS: CHOLECALCIFEROL (D3) 400 UNIT TABLET PO SCH (09:03)
[2019-11-19] MEDS: CYANOCOBALAMIN (VITAMIN B-12) 1,000 MCG TABLET PO SCH (09:03)
[2019-11-19] MEDS: OLANZAPINE 5 MG TABLET PO SCH ×2 (09:03→18:06)
[2019-11-19] MEDS: CALCIUM CARBONATE 600 MG/VITAMIN D3 400 UNIT TABLET PO SCH (09:09)
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
--- NOTE | 2019-11-19 11:00 | RADIOLOGY REPORT (SQ) ---
EXAM DESCRIPTION: CHEST 2 VIEWS COMPLETED DATE/TIME: 11/19/2019 10:29 am REASON FOR STUDY: pnemthorax COMPARISON: 11/17/2019 EXAM PARAMETERS: NUMBER OF VIEWS: two views TECHNIQUE: Digital Frontal and Lateral radiographic views of the chest acquired. RADIATION DOSE: NA LIMITATIONS: none FINDINGS: LUNGS AND PLEURA: Small to moderate size left pleural effusion. Bibasilar airspace diseas e consistent with atelectasis. No pneumothorax. MEDIASTINUM AND HILAR STRUCTURES: No masses or contour abnormalities. HEART AND VASCULAR STRUCTURES: Heart normal size. No evidence for failure. BONES: No acute findings. HARDWARE: None in the chest. OTHER: No other significant finding. IMPRESSION: Small to moderate left pleural effusion. Bibasilar airspace disease most consistent wit h atelectasis. Findings have progressed when compared to prior study. TECHNICAL DOCUMENTATION: JOB ID: [id number] 2010 [employer]- All Rights Reserved Reading location - IP/workstation name: [email or web address]
[2019-11-19] MEDS: CEFUROXIME 500 MG TABLET PO SCH ×2 (13:20→18:06)
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
--- NOTE | 2019-11-19 16:11 | RADIOLOGY REPORT (SQ) ---
EXAM DESCRIPTION: U/S CHEST COMPLETED DATE/TIME: 11/19/2019 4:00 pm REASON FOR STUDY: left side pleural effusion COMPARISON: None. TECHNIQUE: Dynamic and static grayscale images acquired of the localized site of clinical concern an d recorded on PACS. Additional selected color Doppler and spectral images recorded. SITE OF CONCERN: Right and left pleural space LIMITATIONS: None. FINDINGS: Small left-sided pleural effusion is demonstrated. No effusion on the right. IMPRESSION: Small left-sided pleural effusion is demonstrated. TECHNICAL DOCUMENTATION: JOB ID: [id number] 2010 [employer]- All Rights Reserved Reading location - IP/workstation name: [email or web address]
[2019-11-19] MEDS: BENZTROPINE MESYLATE 1 MG TABLET PO SCH (18:06)
[2019-11-20] MEDS: HYDROMORPHONE HCL INJ/PF 2 MG/ML AMPULE IV PRN ×3 (00:24→19:57)
[2019-11-20 07:28] LABS: ANION GAP 6 (5-19); BLOOD UREA NITROGEN 11 mg/dL (7-20); CALCIUM 8.9 mg/dL (8.4-10.2); CARBON DIOXIDE 26 mmol/L (22-30); CHLORIDE 107 mmol/L (98-107); GLUCOSE 78 mg/dL (75-110); POTASSIUM 4.5 mmol/L (3.6-5.0)
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
[2019-11-20] MEDS: NICOTINE 21 MG/24 HR PATCH.TD24 TD SCH (09:51)
[2019-11-20] MEDS: THIAMINE HCL 100 MG TABLET PO SCH (09:51)
[2019-11-20] MEDS: VITAMIN B COMPLEX TABLET PO SCH (09:52)
[2019-11-20] MEDS: FAMOTIDINE 20 MG TABLET PO SCH ×2 (09:52→21:17)
[2019-11-20] MEDS: CEFUROXIME 500 MG TABLET PO SCH ×2 (09:52→17:57)
[2019-11-20] MEDS: GUAIFENESIN 600 MG TABLET.SA PO SCH ×2 (09:52→21:17)
[2019-11-20] MEDS: CHOLECALCIFEROL (D3) 400 UNIT TABLET PO SCH (09:52)
[2019-11-20] MEDS: OLANZAPINE 5 MG TABLET PO SCH ×2 (09:52→17:58)
[2019-11-20] MEDS: CYANOCOBALAMIN (VITAMIN B-12) 1,000 MCG TABLET PO SCH (09:52)
[2019-11-20] MEDS: CALCIUM CARBONATE 600 MG/VITAMIN D3 400 UNIT TABLET PO SCH (09:53)
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
--- NOTE | 2019-11-20 13:31 | PSYCHOLOGICAL NOTE ---
Psych Note - Psych Note Date seen by psych provider: 11/20/19 Time seen by psych provider: 13:20 Psych Note: Check in conducted with patient. Patient was sleeping when clinician entered the room. Patient is expected to have surgery later this afternoon, so clinician did not wake patient. Per verbal report from nurse and patient's sitter, there are no acute concerns and patient is doing well. Medication recommendations per [facility]'s contracted psychiatrist Dr. Sherine LUGO are as follows Continue Zyprexa 5MG, twice a day Continue Cogentin 1MG, daily Impression\plan: Patient is recommended to continue under IVC. Medication recommendations have been provided. Patient is still unable to clearly articulate why she tried to kill herself. Patient will be re-evaluated. Dr. Taylor was consulted to care management of this patient; attending physicians in agreement with recommendations and disposition.
[2019-11-20] MEDS ORDERED: MIDAZOLAM 2 MG/2 ML INJ ONE (15:52)
[2019-11-20] MEDS ORDERED: FENTANYL CITRATE INJ/PF 100 MCG/2 ML AMPUL ONE (15:52)
[2019-11-20] MEDS ORDERED: PROPOFOL INJ 200 MG/20 ML VIAL IV ONE (15:53)
[2019-11-20] MEDS ORDERED: DEXMEDETOMIDINE INJ 80 MCG/20 ML VIAL IV ONE (15:53)
[2019-11-20] MEDS ORDERED: ONDANSETRON HCL INJ/PF 4 MG/2 ML SDV ONE (15:53)
[2019-11-20] MEDS ORDERED: CEFAZOLIN INJ 1 GM VIAL ONE (16:15)
[2019-11-20] MEDS ORDERED: LIDOCAINE 1%/EPINEPHRINE INJ 20 ML VIAL ONE (16:17)
[2019-11-20] MEDS ORDERED: LIDOCAINE 1%/EPINEPHRINE INJ 20 ML VIAL INJ ONE (16:23)
[2019-11-20] MEDS ORDERED: DIPHENHYDRAMINE HCL 50 MG/ML VIAL IV PRN (16:31)
[2019-11-20] MEDS ORDERED: FENTANYL CITRATE INJ/PF 100 MCG/2 ML AMPUL IV PRN ×3 (16:31)
[2019-11-20] MEDS ORDERED: MEPERIDINE HCL/PF INJ 25 MG/1 ML DISP.SYRIN IV PRN (16:31)
[2019-11-20] MEDS ORDERED: PROMETHAZINE HCL INJ 25 MG/1 ML VIAL IV PRN (16:31)
[2019-11-20] MEDS ORDERED: MORPHINE SULFATE 10 MG/ML INJ IV PRN (16:31)
--- NOTE | 2019-11-20 16:48 | Operative Report ---
Operative Report DATE OF SURGERY: 11/20/19 PREOPERATIVE DIAGNOSIS: Left chest/breast hematoma POSTOPERATIVE DIAGNOSIS: Same, retained foreign body OPERATION: Left chest/breast hematoma evacuation with removal of foreign body. SURGEON: TOBY TORRES ANESTHESIA: GA TISSUE REMOVED OR ALTERED: Hematoma evacuated. A 2 x 2 centimeter piece of latex in the wound removed. COMPLICATIONS: None ESTIMATED BLOOD LOSS: Minimal INTRAOPERATIVE FINDINGS: Approximately 30 cc of blood clots within left upper anterior chest/breast wound extending to the sternocleidomastoid muscle. A small piece of latex in the hematoma cavity PROCEDURE: Informed consent was obtained. Patient was brought to the operating room and placed on the operating table in supine position. Procedure was done under LMAC. Patient's wound laid at the left mid anterior upper chest/upper breast region. Local anesthetic was administered. Her pre-existing suture was removed entering a hematoma cavity with approximately 30 cc of blood clots that was removed. There was a small piece of latex within the cavity that was removed, likely a portion of a drain from her previous surgery. The cavity was irrigated copiously. No active bleeding was seen. The cavity extended through portion of the sternocleidomastoid muscle. No air bubbling was seen at the base of the wound. The cavity was then packed with gauze. Dressings were applied. Patient had a lateral chest tube wound with silk sutures in place and these sutures were removed and dry dressings were applied. Patient tolerated procedure well with no apparent complications and was taken to the recovery area in stable condition.
[2019-11-20] MEDS: BENZTROPINE MESYLATE 1 MG TABLET PO SCH (17:58)
--- NOTE | 2019-11-20 22:58 | PDOC PROGRESS REPORT ---
Subjective Progress Note for:: 11/20/19 Subjective:: Chest/upper breast area feels better. Reason For Visit: SUICIDE ATTEMPT; LEFT PNEUMOTHORAX Physical Exam Vital Signs: Temp Pulse Resp BP Pulse Ox 98.2 F 72 16 105/62 95 11/20/19 21:40 11/20/19 21:40 11/20/19 21:40 11/20/19 21:40 11/20/19 21:40 Intake & Output 11/19/19 11/20/19 11/21/19 06:59 06:59 06:59 Intake Total 1041 1010 850 Balance 1041 1010 850 Weight 81.2 kg 83.5 kg General appearance: PRESENT: no acute distress, cooperative Respiratory exam: PRESENT: clear to auscultation sakina Cardiovascular exam: PRESENT: RRR Skin exam: PRESENT: other - Left upper chest wound with dressings intact stained with some blood-tinged serous fluid. Results Laboratory Results: 11/18/19 05:46 11/20/19 05:57 11/20/19 05:57 Sodium 139.3 Potassium 4.5 Chloride 107 Carbon Dioxide 26 Anion Gap 6 BUN 11 Creatinine 0.58 Est GFR ( Amer) > 60 Glucose 78 Calcium 8.9 Impressions: Chest CT 11/14/19 00:00 IMPRESSION: 1. Consolidative opacities in the dependent portions of the lower lobes (left greater than right) that are nonspecific and could represent atelectasis or infection. The vertically oriented opacity in the anterior left upper lobe (image 29 of series 4) could represent a laceration. 2. Miniscule left-sided anterolateral pneumothorax with a large bore chest tube in place. 3. Subcutaneous hematoma medial and anterior to the left pectoralis major. 4. Intramuscular and subcutaneous emphysema in the left anterior hemithorax and axilla. 5. Acute nondisplaced fracture of the left anterior 3rd rib. Chest Ultrasound 11/19/19 00:00 IMPRESSION: Small left-sided pleural effusion is demonstrated. Chest X-Ray 11/19/19 00:00 IMPRESSION: Small to moderate left pleural effusion. Bibasilar airspace disease most consistent with atelectasis. Findings have progressed when compared to prior study. Assessment & Plan - Diagnosis (1) Hematoma Is this a current diagnosis for this admission?: Yes Plan: Looks good status post evacuation. I have explained to the patient the intraoperative finding including the large hematoma and the retained latex likely due to drain that had torn off during drain removal. Will remove dress ings tomorrow. If wound care can be arranged at the transfer facility, will transfer patient tomorrow.
[2019-11-21] MEDS: HYDROMORPHONE HCL INJ/PF 2 MG/ML AMPULE IV PRN ×2 (03:44→09:57)
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
[2019-11-21] MEDS: OLANZAPINE 5 MG TABLET PO SCH ×2 (09:31→17:46)
[2019-11-21] MEDS: CYANOCOBALAMIN (VITAMIN B-12) 1,000 MCG TABLET PO SCH (09:31)
[2019-11-21] MEDS: FAMOTIDINE 20 MG TABLET PO SCH ×2 (09:31→22:29)
[2019-11-21] MEDS: CHOLECALCIFEROL (D3) 400 UNIT TABLET PO SCH (09:31)
[2019-11-21] MEDS: CALCIUM CARBONATE 600 MG/VITAMIN D3 400 UNIT TABLET PO SCH (09:32)
[2019-11-21] MEDS: GUAIFENESIN 600 MG TABLET.SA PO SCH ×2 (09:32→22:29)
[2019-11-21] MEDS: NICOTINE 21 MG/24 HR PATCH.TD24 TD SCH (09:32)
[2019-11-21] MEDS: THIAMINE HCL 100 MG TABLET PO SCH (09:32)
[2019-11-21] MEDS: VITAMIN B COMPLEX TABLET PO SCH (09:32)
[2019-11-21] MEDS: CEFUROXIME 500 MG TABLET PO SCH ×2 (09:32→17:46)
--- NOTE | 2019-11-21 12:40 | PDOC PROGRESS REPORT ---
Subjective Progress Note for:: 11/21/19 Subjective:: Feels well. No respiratory complaints. Minimal pain. Reason For Visit: SUICIDE ATTEMPT; LEFT PNEUMOTHORAX Physical Exam Vital Signs: Temp Pulse Resp BP Pulse Ox 98.1 F 65 16 124/80 99 11/21/19 11:05 11/21/19 11:05 11/21/19 11:05 11/21/19 11:05 11/21/19 11:05 Intake & Output 11/20/19 11/21/19 11/22/19 06:59 06:59 06:59 Intake Total 1010 1090 Balance 1010 1090 Weight 83.5 kg 87.4 kg General appearance: PRESENT: no acute distress, cooperative Respiratory exam: PRESENT: clear to auscultation sakina Cardiovascular exam: PRESENT: RRR Skin exam: PRESENT: other - Chest/upper breast wound is very clean with no bleeding no surrounding erythema. The packing was removed. It was repacked. Results Laboratory Results: 11/18/19 05:46 11/20/19 05:57 Impressions: Chest CT 11/14/19 00:00 IMPRESSION: 1. Consolidative opacities in the dependent portions of the lower lobes (left greater than right) that are nonspecific and could represent atelectasis or infection. The vertically oriented opacity in the anterior left upper lobe (image 29 of series 4) could represent a laceration. 2. Miniscule left-sided anterolateral pneumothorax with a large bore chest tube in place. 3. Subcutaneous hematoma medial and anterior to the left pectoralis major. 4. Intramuscular and subcutaneous emphysema in the left anterior hemithorax and axilla. 5. Acute nondisplaced fracture of the left anterior 3rd rib. Chest Ultrasound 11/19/19 00:00 IMPRESSION: Small left-sided pleural effusion is demonstrated. Chest X-Ray 11/19/19 00:00 IMPRESSION: Small to moderate left pleural effusion. Bibasilar airspace disease most consistent with atelectasis. Findings have progressed when compared to prior study. Assessment & Plan - Diagnosis (1) Hematoma Is this a current diagnosis for this admission?: Yes Plan: Status post hematoma evacuation. The wound looks very good. She may be transferred provided that she can undergo normal saline wet-to-dry gauze packing to the wound once a day. Follow-up at [facility] in 1 to 2 weeks. If the facility cannot do wet-to-dry dressings, recommend keeping the patient here over the weekend and by early next week she can just go to a dry dressing change.
[2019-11-21] MEDS: BENZTROPINE MESYLATE 1 MG TABLET PO SCH (17:46)
[2019-11-21] MEDS: MORPHINE SULFATE 10 MG/ML INJ IV PRN (22:29)
[2019-11-22] MEDS: MORPHINE SULFATE 10 MG/ML INJ IV PRN ×2 (06:06→12:25)
[2019-11-22 09:37] VITALS: BP 116/68
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
[2019-11-22] MEDS: GUAIFENESIN 600 MG TABLET.SA PO SCH (10:25)
[2019-11-22] MEDS: OLANZAPINE 5 MG TABLET PO SCH (10:25)
[2019-11-22] MEDS: VITAMIN B COMPLEX TABLET PO SCH (10:25)
[2019-11-22] MEDS: THIAMINE HCL 100 MG TABLET PO SCH (10:25)
[2019-11-22] MEDS: FAMOTIDINE 20 MG TABLET PO SCH (10:25)
[2019-11-22] MEDS: CHOLECALCIFEROL (D3) 400 UNIT TABLET PO SCH (10:26)
[2019-11-22] MEDS: CEFUROXIME 500 MG TABLET PO SCH (10:26)
[2019-11-22] MEDS: CYANOCOBALAMIN (VITAMIN B-12) 1,000 MCG TABLET PO SCH (10:26)
[2019-11-22] MEDS: CALCIUM CARBONATE 600 MG/VITAMIN D3 400 UNIT TABLET PO SCH (10:26)
[2019-11-22] MEDS: NICOTINE 21 MG/24 HR PATCH.TD24 TD SCH (10:26)
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
== END 2019-11-22 13:50 | disposition home or self-care (01) | DRG 988 ==
LOC: EEVIPCON 05:45 → ER 05:45 → EH 08:42 → ICU 15:00 → 4S 11-15 18:26
PROVIDERS: ADMIT Internal Medicine Critical Care Medicine; ATTEND Internal Medicine Critical Care Medicine
PROC: 0HCU0ZZ Extirpation of Matter from Left Breast, Open Approach (ICD-10-PCS; principal; 2019-11-14)
PROC: 5A1935Z Respiratory Ventilation, Less than 24 Consecutive Hours (ICD-10-PCS; 2019-11-14)
PROC: 0BH17EZ Insertion of Endotracheal Airway into Trachea, Via Natural or Artificial Opening (ICD-10-PCS; 2019-11-14)
PROC: 0WCB0ZZ Extirpation of Matter from Left Pleural Cavity, Open Approach (ICD-10-PCS; 2019-11-14)
PROC: 0JC60ZZ Extirpation of Matter from Chest Subcutaneous Tissue and Fascia, Open Approach (ICD-10-PCS; 2019-11-20)
DX: J96.01 Acute respiratory failure with hypoxia (principal); S27.0XXA Traumatic pneumothorax, initial encounter; F32.3 Major depressive disorder, single episode, severe with psychotic features; S21.142A Puncture wound with foreign body of left front wall of thorax without penetration into thoracic cavity, initial encounter; X78.1XXA Intentional self-harm by knife, initial encounter; Y92.009 Unspecified place in unspecified non-institutional (private) residence as the place of occurrence of the external cause; F10.20 Alcohol dependence, uncomplicated; T14.8XXA Other injury of unspecified body region, initial encounter; X78.9XXA Intentional self-harm by unspecified sharp object, initial encounter; I10 Essential (primary) hypertension; F32.9 Major depressive disorder, single episode, unspecified; F17.210 Nicotine dependence, cigarettes, uncomplicated; F10.21 Alcohol dependence, in remission; F41.9 Anxiety disorder, unspecified; Z79.899 Other long term (current) drug therapy; Z78.1 Physical restraint status
CPT/HCPCS: 36415; 400; 51702; 71045; 71046; 71250; 76604; 80048; 80053; 80307; 82803; 84443; 85025; 85610; 94002; 96374; 99285; 99291; J0330; J0690; J1170; J2060; J2250; J2270; J2405; J2704; J3010; J3490; J7120; S0028